=== PATIENT | female | born 1990 | race Caucasian/White ===

== ENCOUNTER 2017-12-14 21:24 | Emergency (ER) | payer OTHER, SELFPAY ==
[2017-12-14 21:32] VITALS: BP 121/71; PULSE 124; RESP 20; TEMP 39; O2SAT 100
--- NOTE | 2017-12-14 21:41 | W.ED.GENAD ---
Discharge Plan Disposition Patient Disposition: HOME Condition: Stable Discharge Details Chief Complaint: Fever Clinical Impression: Phlegmonous pharyngitis Primary Care Provider: Maggie Gutiérrez ED Provider: Franklyn Parson Home Meds and New Rx's Prescriptions: New prednisone 20 mg tablet 20 mg PO DIRECTED Qty: 18 RF: 0 amoxicillin-pot clavulanate [Augmentin] 875-125 mg tablet 1 tab PO BID Qty: 20 RF: 0 Continue norgestimate-ethinyl estradiol [Sprintec (28)] 1 EACH tablet 1 tab-cap PO DAILY Qty: 90 RF: 3 adult multivitamin 1 tab PO DAILY Qty: 0 RF: 0 ibuprofen 600 mg Tablet 600 mg PO PRN PRNRF: 0 Discontinued ciprofloxacin HCl [Cipro] 250 mg Tablet 500 mg PO BID RF: 0 Discharge Instructions Instructions: Pharyngitis (ED) Additional Instructions: You had a cat scan which showed a possible peritonsillar abscess. I had an Ears nose and throat specialist at [facility] review the images and they did not feel it was an abscess but just appeared to be a throat infection. They recommended changing your antibiotics to augmentin. You can take 1000mg tylenol and 600mg ibuprofen every 6 hours for pain as needed if you have inability to swallow liquids, difficulty breathing or severe worsening of pain return to the emergency department Discharge Data Discharge Physician: Franklyn Parson Medical Decision Making 27 yo female with no chronic medical problems comes in with fevers and sore throat. She states this started last night and saw her pcp today who origianlly palced her on clindamycin but after consulting with ENT switched her to cipro, despite this she still feels unwell so came here. She has mild erythema of the oropharynx and had negative rapdid strep testing done earlier, and has midline uvula, no changes in voice, no restricted neck movements or meningieal signs or headaches. She does have pain with palpation of the anterior neck. I suspect viral illness but given pain over the neck will obtain CT to eval for rpa vs well logging mud analysis captain vs epiglottitis pt's ct shows small right sided peritonsillar abscess and possible developing left sided abscess, she feels better, is tolerating PO liquids and has no stridor. Will discuss with ent at [facility] [place] spoke with ent at [facility] [place], Dr. Leal, and she reviewed the films and felt they were more phlegmon than abscess and didn't need drainage at this time. She felt augmentin and steroid taper and pcp f/u is all that is needed and if worsening return to the ED. The patient is speaking in full sentences and swallowing without problems so feel she is safe for d/c. She already has pcp f/u and return precautions given Differential Diagnosis mono, pharyngitis, uri, sinusitis, rpa, well logging mud analysis captain Imaging Data Radiologic Study: Attestation: I personally reviewed and interpreted this imaging study as follows: Imaging: CT Scan My impression: vrad report reviewed, small abscess peritonsillar on the right Radiologist's impression: Enlarged palatine tonsils bilaterally with heterogeneous enhancement compatible with acute tonsillitis. Right tonsillar 1.7 x 1.3 cm abscess. A smaller less defined 1.2 x 0.7 cm fluid collection within the left tonsillar bed probably representing a developing abscess. Lab Data Lab results reviewed: Yes I reviewed the patient's lab results. HPI General Mode of arrival: ambulatory. Date/Time Provider Initiated Documentation: 12/14/17 21:25. Limitations to Documentation: no limitations. Information obtained by: patient. History of Present Illness 27 year old F presents to the emergency department with the chief complaint of sore throat, described as moderate, with intensity rated at 5. Quality is described as aching, and is localized to the neck. Patient reports no radiation. Patient started experiencing this day(s) (1) and it has been constant. No relieving factors improve symptom(s), No exacerbating factors reported . Patient notes fever/chills. Patient did receive the following treatments prior to arrival, NSAID Related Data Home Medications Medication Instructions Recorded Confirmed norgestimate-ethinyl estradiol 1 tab-cap PO DAILY #90 tab-cap 11/27/14 12/14/17 [Sprintec (28)] ibuprofen 600 mg PO PRN PRN 12/14/17 12/14/17 amoxicillin-pot clavulanate 1 tab PO BID #20 tab 12/15/17 [Augmentin] prednisone 20 mg PO DIRECTED #18 tab 12/15/17 Previous Rx's Medication Instructions Recorded amoxicillin-pot clavulanate 1 tab PO BID #20 tab 12/15/17 [Augmentin] prednisone 20 mg PO DIRECTED #18 tab 12/15/17 Allergies Allergy/AdvReac Type Severity Reaction Status Date / Time No Known Allergies Allergy Unverified 12/14/17 21:35 General Stated Complaint: Fever CRISTAL: 3 Review of Systems Review of Systems All systems reviewed & are unremarkable except as noted in HPI and below Constitutional Reports fever(s) Eyes Denies loss of vision ENT Denies change in voice Cardiovascular Denies chest pain and Denies dyspnea Respiratory Denies dyspnea Gastrointestinal Denies abdominal pain, Denies nausea and Denies vomiting Genitourinary Denies dysuria Musculoskeletal Denies joint swelling Integumentary/Breasts Denies rash Neurologic Denies loss of vision Psychiatric Denies depression Endocrine Denies cold intolerance and Denies heat intolerance Allergic/Immunologic Reports urticaria PFSH Social History Smoking/Tobacco Use Status: Never Exam Const General: no acute distress Orientation: alert HENMT Head: normal to inspection Ears: external ears normal and TM's normal bilaterally General nose exam: external nose normal Face and sinus: normal facial exam Mouth: moist mucous membranes, oral mucosa abnormal and tongue abnormal Teeth and gingiva: dentition normal Eyes General: appearance normal, both eyes and all related structures Neck Neck: normal visual inspection and no meningeal signs Resp Effort & Inspection: normal respiratory effort and able to speak in complete sentences Cardio Rate: regular rate Skin General skin exam: no rashes or lesions noted Neuro General: alert and oriented x3 Extrem General: normal to inspection Psych Mental Status: mental status grossly normal Course Vital Signs Temperature 39.0 C H 12/14/17 21:32 Pulse 124 H 12/14/17 21:32 Respiratory Rate 20 12/14/17 21:32 Blood Pressure 121/71 12/14/17 21:32 Pulse Oximetry 100 12/14/17 21:32 Temperature 39.0 C H 12/14/17 21:32 Temperature Source Temporal Artery Scan 12/14/17 21:32 Pulse 124 H 12/14/17 21:32 Respiratory Rate 20 12/14/17 21:32 Respiratory Effort Non-Labored 12/14/17 21:36 Blood Pressure 121/71 12/14/17 21:32 Blood Pressure Position Sitting 12/14/17 21:32 Pulse Oximetry 100 12/14/17 21:32 Oxygen Delivery Method Room Air 12/14/17 21:32 Oxygen Flow Rate 0 12/14/17 21:32 Pain Level 7 12/14/17 21:32
--- NOTE | 2017-12-14 21:46 | ED.GENADUL_ITS ---
Discharge Plan Disposition Patient Disposition: HOME Condition: Stable Discharge Details Chief Complaint: Fever Clinical Impression: Phlegmonous pharyngitis Primary Care Provider: Maggie Gutiérrez ED Provider: Franklyn Parson Home Meds and New Rx's Prescriptions: New prednisone 20 mg tablet 20 mg PO DIRECTED Qty: 18 RF: 0 amoxicillin-pot clavulanate [Augmentin] 875-125 mg tablet 1 tab PO BID Qty: 20 RF: 0 Continue norgestimate-ethinyl estradiol [Sprintec (28)] 1 EACH tablet 1 tab-cap PO DAILY Qty: 90 RF: 3 adult multivitamin 1 tab PO DAILY Qty: 0 RF: 0 ibuprofen 600 mg Tablet 600 mg PO PRN PRNRF: 0 Discontinued ciprofloxacin HCl [Cipro] 250 mg Tablet 500 mg PO BID RF: 0 Discharge Instructions Instructions: Pharyngitis (ED) Additional Instructions: You had a cat scan which showed a possible peritonsillar abscess. I had an Ears nose and throat specialist at [facility] review the images and they did not feel it was an abscess but just appeared to be a throat infection. They recommended changing your antibiotics to augmentin. You can take 1000mg tylenol and 600mg ibuprofen every 6 hours for pain as needed if you have inability to swallow liquids, difficulty breathing or severe worsening of pain return to the emergency department Discharge Data Discharge Physician: Franklyn Parson Medical Decision Making 27 yo female with no chronic medical problems comes in with fevers and sore throat. She states this started last night and saw her pcp today who origianlly palced her on clindamycin but after consulting with ENT switched her to cipro, despite this she still feels unwell so came here. She has mild erythema of the oropharynx and had negative rapdid strep testing done earlier, and has midline uvula, no changes in voice, no restricted neck movements or meningieal signs or headaches. She does have pain with palpation of the anterior neck. I suspect viral illness but given pain over the neck will obtain CT to eval for rpa vs ferry captain vs epiglottitis pt's ct shows small right sided peritonsillar abscess and possible developing left sided abscess, she feels better, is tolerating PO liquids and has no stridor. Will discuss with ent at [facility] [place] with ent at [facility] [place], Dr. Leal, and she reviewed the films and felt they were more phlegmon than abscess and didn't need drainage at this time. She felt augmentin and steroid taper and pcp f/u is all that is needed and if worsening return to the ED. The patient is speaking in full sentences and swallowing without problems so feel she is safe for d/c. She already has pcp f/u and return precautions given Differential Diagnosis mono, pharyngitis, uri, sinusitis, rpa, ferry captain Imaging Data Radiologic Study: Attestation: I personally reviewed and interpreted this imaging study as follows: Imaging: CT Scan My impression: vrad report reviewed, small abscess peritonsillar on the right Radiologist's impression: Enlarged palatine tonsils bilaterally with heterogeneous enhancement compatible with acute tonsillitis. Right tonsillar 1.7 x 1.3 cm abscess. A smaller less defined 1.2 x 0.7 cm fluid collection within the left tonsillar bed probably representing a developing abscess. Lab Data Lab results reviewed: Yes I reviewed the patient's lab results. HPI General Mode of arrival: ambulatory . Date/Time Provider Initiated Documentation: 12/14/17 21:25 . Limitations to Documentation: no limitations . Information obtained by: patient . History of Present Illness 27 year old F presents to the emergency department with the chief complaint of sore throat, described as moderate, with intensity rated at 5. Quality is described as aching, and is localized to the neck. Patient reports no radiation. Patient started experiencing this day(s) (1) and it has been constant. No relieving factors improve symptom(s), No exacerbating factors reported . Patient notes fever/chills. Patient did receive the following treatments prior to arrival, NSAID Related Data Home Medications Medication Instructions Recorded Confirmed norgestimate-ethinyl estradiol 1 tab-cap PO DAILY #90 tab-cap 11/27/14 12/14/17 [Sprintec (28)] ibuprofen 600 mg PO PRN PRN 12/14/17 12/14/17 amoxicillin-pot clavulanate 1 tab PO BID #20 tab 12/15/17 [Augmentin] prednisone 20 mg PO DIRECTED #18 tab 12/15/17 Previous Rx's Medication Instructions Recorded amoxicillin-pot clavulanate 1 tab PO BID #20 tab 12/15/17 [Augmentin] prednisone 20 mg PO DIRECTED #18 tab 12/15/17 Allergies Allergy/AdvReac Type Severity Reaction Status Date / Time No Known Allergies Allergy Unverified 12/14/17 21:35 General Stated Complaint: Fever CRISTAL: 3 Review of Systems Review of Systems All systems reviewed & are unremarkable except as noted in HPI and below Constitutional Reports fever(s) Eyes Denies loss of vision ENT Denies change in voice Cardiovascular Denies chest pain and Denies dyspnea Respiratory Denies dyspnea Gastrointestinal Denies abdominal pain, Denies nausea and Denies vomiting Genitourinary Denies dysuria Musculoskeletal Denies joint swelling Integumentary/Breasts Denies rash Neurologic Denies loss of vision Psychiatric Denies depression Endocrine Denies cold intolerance and Denies heat intolerance Allergic/Immunologic Reports urticaria PFSH Social History Smoking/Tobacco Use Status: Never Exam Const General: no acute distress Orientation: alert HENMT Head: normal to inspection Ears: external ears normal and TM's normal bilaterally General nose exam: external nose normal Face and sinus: normal facial exam Mouth: moist mucous membranes, oral mucosa abnormal and tongue abnormal Teeth and gingiva: dentition normal Eyes General: appearance normal, both eyes and all related structures Neck Neck: normal visual inspection and no meningeal signs Resp Effort & Inspection: normal respiratory effort and able to speak in complete sentences Cardio Rate: regular rate Skin General skin exam: no rashes or lesions noted Neuro General: alert and oriented x3 Extrem General: normal to inspection Psych Mental Status: mental status grossly normal Course Vital Signs Temperature 39.0 C H 12/14/17 21:32 Pulse 124 H 12/14/17 21:32 Respiratory Rate 20 12/14/17 21:32 Blood Pressure 121/71 12/14/17 21:32 Pulse Oximetry 100 12/14/17 21:32 Temperature 39.0 C H 12/14/17 21:32 Temperature Source Temporal Artery Scan 12/14/17 21:32 Pulse 124 H 12/14/17 21:32 Respiratory Rate 20 12/14/17 21:32 Respiratory Effort Non-Labored 12/14/17 21:36 Blood Pressure 121/71 12/14/17 21:32 Blood Pressure Position Sitting 12/14/17 21:32 Pulse Oximetry 100 12/14/17 21:32 Oxygen Delivery Method Room Air 12/14/17 21:32 Oxygen Flow Rate 0 12/14/17 21:32 Pain Level 7 12/14/17 21:32
[2017-12-14] MEDS: Normal Saline 1,000 ML 1000 ML IV (22:10)
[2017-12-14] MEDS: Acetaminophen 500 MG TAB 1000 MG PO (22:10)
[2017-12-14 22:19] LABS: Abs Immature Grans 0.03 k/cumm (0.0-0.09); Absolute Basophil Count 0.01 k/cumm (0.0-0.2); Absolute Lymphocyte Count 0.92 k/cumm (1.2-3.4); Absolute Monocyte Count 1.06 k/cumm (0.11-0.7); Absolute Neutrophil Count 11.94 k/cumm (1.2-6.7); Basophils % 0.1; HCT 42.2 % (36.0-46.0); Immature Grans % 0.2; Lymphocytes % 6.6; Mean Corp. HGB Concentration 33.2 g/dL (32.0-36.0); Mean Corpuscular Hemoglobin 30.2 pg (27.0-33.0); Mean Corpuscular Volume 90.9 fL (80-95); Mean Platelet Volume 12.1 fL (8.0-11.0); Monocytes % 7.6; Neutrophils % 85.5; Platelet Count 209 x1000/uL (130-400); RBC 4.64 m/cumm (4.00-5.20); RBC Distribution Width 12.8 % (11.7-14.6); White Blood Cell Count 13.96 k/cumm (4.4-10.8)
[2017-12-14 22:26] LABS: ALT 18 U/L (12-78); AST 17 U/L (15-37); Albumin 3.4 g/dL (3.4-5.0); Alkaline Phosphatase 82 U/L (46-116); Anion Gap 12.6 mmol/L (3-11); BUN 7 mg/dL (7-18); Bilirubin, Total 0.6 mg/dL (0.2-1.0); CO2 25.4 mmol/L (21.0-32.0); CREATININE 0.84 mg/dL (0.55-1.02); Calcium 8.6 mg/dL (8.5-10.1); Chloride 98 mmol/L (98-107); Glucose 121 mg/dL (70-100); Mono Screening Negative (Negative); Sodium 136 mmol/L (136-145); Total Protein 8.1 g/dL (6.4-8.2)
[2017-12-14] MEDS: Omnipaque 350 MG/ML 100 ML BTL IJ (22:55)
--- NOTE | 2017-12-14 23:05 | DI.CT_ITS ---
SYMPTOMS/DIAGNOSIS: SORE THROAT AND FEVERS CT SCAN OF THE NECK: CT scan of the neck was performed following the uneventful administration of intravenous contrast material. The palatine tonsils are enlarged bilaterally. There are rim-enhancing fluid collections in the palatine tonsils bilaterally, the largest is on the right and measures 1.8 cm transverse x 1.4 cm AP x 2 cm craniocaudad. On the left, there is a similar fluid collection seen measuring 1.3 cm transverse x 1.1 cm AP x 1.2 cm craniocaudad. There is mild impingement on the airway, but no significant narrowing noted. These fluid collections probably reflect abscesses. The remaining portions of the nasopharynx, hypopharynx, oropharynx and larynx are unremarkable. The thyroid gland is unremarkable. The submandibular and parotid glands are unremarkable. There are mildly enlarged lymph nodes in the neck. These are likely reactive. There is a small mucus retention cyst or polyp in the left maxillary sinus. The remaining visualized paranasal sinuses are clear. The mastoid air cells are well pneumatized. The bones are intact. The vascular structures are unremarkable. IMPRESSION: Bilateral enlarged palatine tonsils consistent with acute tonsillitis. Fluid collections seen bilaterally within the tonsils, most consistent with abscesses.
--- NOTE | 2017-12-14 23:29 | DI.VRAD_ITS ---
EXAM: CT Neck With Intravenous Contrast EXAM DATE/TIME: 12/14/2017 9:41 PM CLINICAL HISTORY: 27 years old, female; Pain; Throat pain; Patient HX: Sore throat and fever TECHNIQUE: Axial computed tomography images of the neck with intravenous contrast. All CT scans at this facility use at least one of these dose optimization techniques: automated exposure control; mA and/or kV adjustment per patient size (includes targeted exams where dose is matched to clinical indication); or iterative reconstruction. Coronal and sagittal reformatted images were created and reviewed. CONTRAST: 100 ml of Omnipaque 350 administered intravenously. COMPARISON: No relevant prior studies available. FINDINGS: Nasopharynx: Normal. Oropharynx: Enlarged palatine tonsils bilaterally with heterogeneous enhancement compatible with acute tonsillitis. There is a right tonsillar 1.7 x 1.3 cm fluid collection with associated rim enhancement compatible with abscess. A smaller less defined 1.2 x 0.7 cm fluid collection within the left tonsillar bed probably representing a developing abscess. Hypopharynx: Normal. Larynx: Normal. Normal epiglottis. Trachea: Normal. Retropharyngeal space: Normal. Submandibular/Parotid glands: Normal. Glands are normal in size. Thyroid: Normal. No enlarged or calcified nodules. Bones/joints: Normal. No acute fracture. Soft tissues: Normal. No significant soft tissue swelling. Vasculature: No acute findings. Lymph nodes: Enlarged level II lymph nodes bilaterally, likely reactive. Lung apices: Normal as visualized. IMPRESSION: Enlarged palatine tonsils bilaterally with heterogeneous enhancement compatible with acute tonsillitis. Right tonsillar 1.7 x 1.3 cm abscess. A smaller less defined 1.2 x 0.7 cm fluid collection within the left tonsillar bed probably representing a developing abscess. Dictated and Authenticated by: Paul Ortiz MD. Ordering:DAMARIS YU MD
[2017-12-14] MEDS: AMPICILLIN/SULBACTAM 3 GM in Normal Saline 100 ML IVPB (23:41)
[2017-12-14] MEDS: Dexamethasone 10 MG/ML VIAL IVP (23:42)
[2017-12-14 23:49] VITALS: PULSE 106; RESP 18; TEMP 37.4; O2SAT 100
== END 2017-12-15 01:19 | disposition home or self-care (01) ==
PROVIDERS: Emergency Provider Emergency Medicine; PCP Nurse Practitioner
DX: J02.8 Acute pharyngitis due to other specified organisms (principal)
CPT/HCPCS: 36415; 70491; 80053; 96361; 96365; 96375; 99285; 85025; 86308; J0295; J1100; J3490

== ENCOUNTER 2018-02-15 15:04 | Outpatient (REF) | payer OTHER, SELFPAY ==
--- NOTE | 2018-02-15 14:30 | PAPFT_PTH ---
PATIENT: Tara Guerrier LOC: [facility] U#:[id number] AGE/SX: 27/F ROOM: RE02/15/[address]: RON Weeks : 1990 BED: DIS: 02/15/2018 SPEC #: [id number] RECD: 02/15/18 17:50 STATUS: MATTEO REQ #: [id number] KYLAH: 02/15/18 14:[address]: Tracy Fam DEPT: [facility] Cytology RECD BY: Carolyne Shelton ENTERED: 02/15/18 17:51 SP TYPE: PAPFT OTHR DR: Maggie Gutiérrez Tissues: 1 - CX/ENDOCX FOR PAP SMEARS Procedures: PAP THIN PREP/[facility] Screening Comments: [id number]
[2018-02-19 14:24] LABS: Chlamydia Result Negative; GC Result Negative; Specimen Description CERVIX
== END 2018-02-15 15:24 ==
LOC: LBN 15:04
PROVIDERS: PCP Nurse Practitioner; Visit Provider Nurse Practitioner Family
DX: Z12.4 Encounter for screening for malignant neoplasm of cervix (principal); Z11.3 Encounter for screening for infections with a predominantly sexual mode of transmission
CPT/HCPCS: 87491; 87591; 88142

== ENCOUNTER 2019-11-30 09:56 | Emergency (ER) | payer OTHER, SELFPAY ==
[2019-11-30] VITALS (19 sets, daily range): BP systolic 122–153; BP diastolic 67–110; PULSE 64–94; RESP 9–22; TEMP 36.5; O2SAT 96–100
--- NOTE | 2019-11-30 09:58 | W.ED.GENAD ---
Discharge Plan Disposition Patient Disposition: [facility] Condition: Serious Discharge Details Clinical Impression: Dissection, vertebral artery Primary Care Provider: Maggie Gutiérrez ED Provider: Flavia Obando Home Meds and New Rx's Prescriptions: No Action norgestimate-ethinyl estradiol [Sprintec (28)] 1 EACH tablet 1 tab-cap PO DAILY Qty: 90 RF: 3 ibuprofen 600 mg Tablet 600 mg PO PRN PRNRF: 0 Discharge Data Discharge Date/Time-TO BE ENTERED AT DEPARTURE: 11/30/19 11:57 Medical Decision Making <WALLACE Lundberg - Last Filed: 11/30/19 12:54> Patient is a pleasant 29-year-old female presenting today with chief complaint of right-sided weakness. She reports that she was outside speaking words when she suddenly had right-sided weakness causing her to fall to the right. She did not strike her head. States that she felt presyncopal but did not suffer an actual syncopal event. Has felt vertiginous, feels that her right arm and leg are heavy. Denies any sensory deficits. Did not suffer any incontinence. States that she is having some end pain in the posterior right side of her neck. No recent trauma. No recent travel. No personal or familial history of clotting disorders or DVT. Patient reports that she is starting her menses now. No previous history of CVA, brain CA, recent surgery recent trauma. On exam, patient appears very anxious and is tearing. She is unable to stand without large amount of assistance secondary to right-sided weakness. However, she does not demonstrate any pronator drift, strength equal in the upper and lower extremities bilaterally. She has no saddle paresthesias, sensory deficits. Normal Babinski. Pcqndi-[id number] on the right does just laterally missed the nose but is able to touch my finger easily, normal on the left. No cranial nerve deficits. Cannot palpate or note any trauma to the neck. No pain elicited with palpation. My primary concern at this time is for a right-sided vertebral artery dissection. Will immediately send the patient for CTA of head and neck. Reexamined patient, she has no sensory deficit, no new focal weakness. Tried to sit her up, she continues to list to the right when I have her try to sit up. Contacted by AD regarding imaging. Dissection right vertebral artery. Focal narrowing at C4-C5. Recommended MRI/MRA. Will consult with neurosurgery at [facility] – [place]. Consulted with Dr. Bender. She did not recommend anticoagulation or thrombolysis at this time. Recommended ASA. Full dose ASA given. Patient remains hemodynamically stable will be transferred via ground to [facility] [place]. <Franklyn Parson MD - Last Filed: 11/30/19 11:10> I had a [id number] encounter with the patient. I evaluated the patient. I discussed case with VENEER DEPARTMENT MANAGER/PA and I reviewed VENEER DEPARTMENT MANAGER/PA note and agree with note as documented. HPI <WALLACE Lundberg - Last Filed: 11/30/19 12:54> General Mode of arrival: wheelchair. Date/Time Provider Initiated Documentation: 11/30/19 09:57. Limitations to Documentation: no limitations. Information obtained by: patient and RN notes reviewed. HPI Narrative: Patient is a pleasant 29-year-old female presenting today with chief complaint of right-sided neck pain, vertigo, right-sided weakness. She reports that prior to arrival she was picking gourd in her own dee. She states that she has been feeling quite well this morning. States that she stood up and suddenly became weak and felt that the room was spinning. She states that she was unable to maintain upright posture secondary to his right-sided weakness. Was immediately transported here by family. States that she is starting her menses now. She denies any recent travel. She denies any chest pain or shortness of breath. She denies any nausea vomiting. No incontinence. Denies any sensory changes. States that the in the garden is treated with insecticides it has not been treated in several weeks. Related Data Home Medications Medication Instructions Recorded Confirmed norgestimate-ethinyl estradiol 1 tab-cap PO DAILY #90 tab-cap 11/27/14 11/30/19 [Sprintec (28)] ibuprofen 600 mg PO PRN PRN 12/14/17 11/30/19 Allergies Allergy/AdvReac Type Severity Reaction Status Date / Time No Known Allergies Allergy Verified 11/30/19 10:24 General CRISTAL: 3 Review of Systems <WALLACE Lundberg - Last Filed: 11/30/19 12:54> Constitutional Constitutional: Reports as per HPI, Denies chills, Denies fatigue, Denies fever(s), Denies frequent falls, Denies headache(s), Denies snoring and Reports weakness Eyes Eyes: Reports as per HPI, Denies blurry vision, Denies change in vision and Reports photophobia ENT Ears, Nose, Mouth, and Throat: Reports vertigo, Denies headache(s) and Reports neck pain Cardiovascular Cardiovascular: Reports as per HPI, Denies chest pain, Denies lightheadedness, Denies radiating jaw, neck or arm pain, Denies dyspnea and Denies dyspnea on exertion Respiratory Respiratory: Reports as per HPI, Denies chest congestion, Denies cough, Denies dyspnea, Denies dyspnea on exertion, Denies snoring, Denies stridor and Denies wheezing Gastrointestinal Gastrointestinal: Reports as per HPI, Denies abdominal pain, Denies change in bowel habits, Denies nausea and Denies vomiting Musculoskeletal Musculoskeletal: Reports as per HPI, Denies back pain, Denies myalgias, Denies muscle cramps, Reports neck pain and Denies numbness Integumentary/Breasts Skin/Breast: Reports as per HPI and Denies rash Neurologic Neurologic: Reports as per HPI, Reports abnormal movements, Denies abnormal speech, Denies behavioral changes, Denies confusion, Reports vertigo, Denies frequent falls, Denies headache(s), Reports localized weakness, Denies numbness, Denies sensory deficit and Reports weakness Psychiatric Psychiatric: Denies behavioral changes and Denies confusion Endocrine Endocrine: Denies fatigue Allergic/Immunologic Allergic/Immunologic: Denies wheezing PFSH <WALLACE Lundberg - Last Filed: 11/30/19 12:54> Medical History Contraception Social History Smoking/Tobacco Use Status: Never Alcohol Intake: current Alcohol Intake frequency: a few times a week Drug use: Never current occupation: [employer] Do you feel safe in your relationship?: Yes Female Reproductive History Menstrual control method: pills History History 1 Para 1 Hx # Term Pregnancies Multiple births Hx # Pregnancies Ectopic pregnancies AB induced Hx Number of Living Children AB spontaneous Exam <WALLACE Lundberg - Last Filed: 11/30/19 12:54> Const General: cooperative, healthy appearing, uncomfortable, well developed, well groomed and in distress (unable to stand, very anxious) Nutritional Appearance: average body habitus and well nourished Orientation: alert, awake and oriented x3 [facility] Head: normal to inspection, no palpable skull fracture, normocephalic and atraumatic Ears: hearing grossly normal bilaterally, external ears normal and TM's normal bilaterally General nose exam: external nose normal Mouth: oral mucosae normal and moist mucous membranes Throat: posterior oropharynx normal Eyes General: appearance normal, both eyes and all related structures Alignment and Position: alignment normal Periorbital: periorbital findings normal Eyelids: eyelids normal Sclera: sclerae normal Cornea: corneas normal Pupils: PERRL EOM: EOM intact bilaterally Neck Neck: normal visual inspection, full ROM, no lymphadenopathy and no meningeal signs Resp Effort & Inspection: normal respiratory effort, able to speak in complete sentences and no respiratory distress Auscultation: clear to auscultation bilaterally, no rales, no rhonchi and no wheezes Cardio Rate: regular rate Rhythm: regular rhythm Heart Sounds: S1 normal and S2 normal GI Inspection: normal to inspection and non-distended Palpation: soft, no hepatosplenomegaly, not firm, no guarding, not rigid and nontender Percussion: normal to percussion Auscultation: normal bowel sounds Back/Spine/Pelvis Cervical Spine: normal cervical lordosis, cervical ROM normal, No cervical spasm, No cervical spinal tenderness and No step off deformity Thoracic/Lumbar Spine: thoracic and lumbar spine normal to inspection Skin General skin exam: no rashes or lesions noted Neuro General: patient alert, patient awake and patient oriented x3 Cranial Nerves: CN's II-XI intact bilaterally Cognition: normal cognition Speech: speech normal Gait: gait abnormal (unable to stand, lists to the right) Motor: muscle tone normal throughout, strength 5/5 throughout, no pronator drift, abnormal movements noted (even when sitting, falls toward the right) and no fasciculations Sensory Exam: no sensory deficits noted Coordination: ljtalp-sk-jfuy test abnormal (misses nose on the right side), xfsa-ws-[id number] test normal, Romberg test abnormal (unable to preform) and tandem gait abnormal (unable to perform) Extrem General: normal to inspection, capillary refill normal, no pedal edema and no calf tenderness Psych Appearance: grossly normal and well kempt Mental Status: mental status grossly normal Speech and Movement: speech and movement normal
--- NOTE | 2019-11-30 10:00 | RT.EKG_ITS ---
APPROVED REPORT Exam: Resting ECG Patient Location: E HR:64 bpm ECG Measurements Heart Rate 64 AXIS OR 141 P 47 QRSd 78 QRS 72 QT 418 T 63 QTc 432 Conclusion Sinus rhythm...normal P axis, V-rate 60- 99
--- NOTE | 2019-11-30 10:00 | DI.RAD_ITS ---
EXAM: XR CHEST 2V PA LATERAL CLINICAL HISTORY: weakness TECHNIQUE: 2D digital imaging was performed. COMPARISON: No exams were available for comparison FINDINGS: MEDIASTINUM: Normal. HEART: Normal. PULMONARY VASCULATURE: Normal. LUNGS: Clear. PLEURAL SPACE: No pleural effusion or pneumothorax. BONE:Within normal limits for the patient's age. OTHER FINDINGS:Normal. IMPRESSION: No acute pulmonary findings. DATA REPOSITORY: RADIATION DOSE DELIVERED:
[2019-11-30] MEDS: Omnipaque 350 MG/ML 100 ML BTL IJ (10:17)
[2019-11-30 10:21] LABS: Abs Immature Grans 0.02 10^3/uL (0.0-0.06); Absolute Basophil Count 0.03 10^3/uL (0.0-0.2); Absolute Eosinophil Count 0.12 10^3/uL (0.0-0.7); Absolute Lymphocyte Count 2.27 10^3/uL (1.2-3.4); Absolute Monocyte Count 0.53 10^3/uL (0.1-0.8); Absolute Neutrophil Count 4.98 10^3/uL (1.2-6.7); Basophils % 0.4; Eosinophils % 1.5; HGB 13.9 g/dL (11.2-15.7); Immature Grans % 0.3; Lymphocytes % 28.6; MCH 30.1 pg (27.0-33.0); MCHC 32.3 % (32.0-36.0); MCV 93.1 fL (80-95); MPV 11.9 fL (8.0-11.0); Monocytes % 6.7; Neutrophils % 62.5; Nucleated RBC 0 %; Platelet Count 275 10^3/uL (130-400); RBC 4.62 10^6/uL (3.93-5.22); RDW 12.3 % (11.7-14.6); WBC 7.95 10^3/uL (4.4-10.8)
[2019-11-30] MEDS: Normal Saline - Diluent 50 ML VIAL IV (10:21)
[2019-11-30] MEDS: Normal Saline Flush 10 ML SYR IVP (10:21)
--- NOTE | 2019-11-30 10:25 | DI.CT_ITS ---
EXAM: CT BRAIN NECK CTA CLINICAL HISTORY: right sided weakness, vertigo. TECHNIQUE: Imaging Protocol: Axial CT angiography was performed with multi-slice acquisition and mu lti-planar and/or 3D reconstructions. CONTRAST MATERIAL: Intravenous: Omnipaque 350 Contrast volume:structured data in ml COMPARISON: No exams were available for comparison FINDINGS: CT Head W/O: Ventricles and Extra axial spaces: Normal in size and morphology for the patient's age. Hemorrhage: None. Cerebral parenchyma: Normal. Midline shift: None. Brainstem/Cerebellum: Normal. Calvarium: Normal. Visualized Paranasal sinuses/Mastoids: Mucous retention cysts or polyps are seen in the left maxillar y sinus. The remaining visualized paranasal sinuses are clear. Soft Tissues: Unremarkable. CTA Brain W: Internal Carotid Arteries: Petrous: Normal. Cavernous: Normal. Cerebral: Normal. Anterior Cerebral Arteries: Right: No aneurysm, occlusion or significant stenosis. Left: No aneurysm, occlusion or significant stenosis. Middle Cerebral Arteries: Right: No aneurysm, occlusion or significant stenosis. Left: No aneurysm, occlusion or significant stenosis. Posterior cerebral Arteries: Right: No aneurysm, occlusion or significant stenosis. The right posterior communicating artery is p resent. Left: No aneurysm, occlusion or significant stenosis. Vertebral Arteries: Right: No aneurysm, occlusion or significant stenosis. Left: No aneurysm, occlusion or significant stenosis. Basilar Artery: No aneurysm, occlusion or significant stenosis. CTA Neck W: Common Carotid: Right: No aneurysm, occlusion or significant stenosis. Left: No aneurysm, occlusion or significant stenosis. External Carotid: Right: No aneurysm, occlusion or significant stenosis. Left: No aneurysm, occlusion or significant stenosis. Internal Carotid: Right: No aneurysm, occlusion or significant stenosis. Left: No aneurysm, occlusion or significant stenosis. Vertebral Artery: Right: No aneurysm. There is focal narrowing of the right vertebral artery at the C4-5 level. No o cclusion. Left: No aneurysm, occlusion or significant stenosis. Lung Apices: Normal. Bones: Normal. Soft Tissues: Normal. IMPRESSION: 1. Normal CTA examination of the [place] of [place]. 2. Unremarkable noncontrast CT Head. 3. Focal marked narrowing of the right vertebral artery at the C4-5 level. This is concerning for di ssection. MRA of the neck should be considered for further evaluation. RADIATION DOSE DELIVERED: 1,015.02mGy.cm Total DLP DATA REPOSITORY: All CT scans at this facility are submitted to the National Radiology Data Registry (NRDR) Dose Index Registry (DIR) with the [employer] (A[employer]). RADIATION OPTIMIZATION: All CT scans at this facility use at least one of these dose optimization te chniques: automated exposure control; mA and/or kV adjustment per patient size (includes targeted exa ms where dose is matched to clinical indication); or iterative reconstruction.
[2019-11-30 10:33] LABS: PTT Activated 24.6 sec (21.0-31.4); Prothrombin Time 9.8 sec (9.3-11.0)
[2019-11-30 10:36] LABS: ALT 37 U/L (14-59); AST 27 U/L (15-37); Albumin 3.7 g/dL (3.4-5.0); Alkaline Phosphatase 61 U/L (46-116); Anion Gap 8.8 mmol/L (3-11); BUN 18 mg/dL (7-18); Bilirubin, Total 0.3 mg/dL (0.2-1.0); CO2 27.2 mmol/L (21.0-32.0); CREATININE 0.88 mg/dL (0.55-1.02); Chloride 104 mmol/L (98-107); Glucose 101 mg/dL (74-106); Potassium 3.5 mmol/L (3.5-5.1); Sodium 140 mmol/L (136-145); Total Protein 7.7 g/dL (6.4-8.2)
[2019-11-30 10:48] LABS: Troponin I < 0.05 ng/mL (<0.06)
--- NOTE | 2019-11-30 11:09 | DI.VRAD_ITS ---
PROCEDURE INFORMATION: Exam: CT Angiography Head With Contrast Exam date and time: 11/30/2019 10:22 AM Age: 29 years old Clinical indication: Other: Right sided weakness, vertigo; Additional info: Concern for vertebral artery dissection TECHNIQUE: Imaging protocol: Computed tomography angiography of the head with intravenous contrast. 3D rendering (Not supervised by radiologist): MIP and/or 3D reconstructed images were created by the technologist. Radiation optimization: All CT scans at this facility use at least one of these dose optimization techniques: automated exposure control; mA and/or kV adjustment per patient size (includes targeted exams where dose is matched to clinical indication); or iterative reconstruction. Contrast material: OMNIPAQUE 350; Contrast volume: 85 ml; Contrast route: INTRAVENOUS (IV); COMPARISON: No relevant prior studies available. FINDINGS: ANTERIOR CIRCULATION: Right internal carotid artery: Unremarkable. Intracranial segment is patent with no significant stenosis. No aneurysm. Right middle cerebral artery: Unremarkable. No occlusion or significant stenosis. No aneurysm. Right anterior cerebral artery: Unremarkable. No occlusion or significant stenosis. No aneurysm. Left internal carotid artery: Unremarkable. Intracranial segment is patent with no significant stenosis. No aneurysm. Left middle cerebral artery: Unremarkable. No occlusion or significant stenosis. No aneurysm. Left anterior cerebral artery: Unremarkable. No occlusion or significant stenosis. No aneurysm. POSTERIOR CIRCULATION: Right vertebral artery: Unremarkable. No occlusion or significant stenosis. No aneurysm. Left vertebral artery: Unremarkable. No occlusion or significant stenosis. No aneurysm. Basilar artery: Unremarkable. No occlusion or significant stenosis. No aneurysm. Right posterior cerebral artery: Dominant right posterior communicating artery with a diminutive or absent left posterior communicating artery. No occlusion or significant stenosis. No aneurysm. Left posterior cerebral artery: Unremarkable. No occlusion or significant stenosis. No aneurysm. Brain: No definite mass, mass effect, or midline shift. Cerebral ventricles: Normal. No ventriculomegaly. Bones/joints: Unremarkable. No acute fracture. Soft tissues: Unremarkable. IMPRESSION: No large vessel stenosis or occlusion of the head. PROCEDURE INFORMATION: Exam: CT Angiography Neck With Contrast Exam date and time: 11/30/2019 10:22 AM Age: 29 years old Clinical indication: Other: Right sided weakness, vertigo; Additional info: Concern for vertebral artery dissection TECHNIQUE: Imaging protocol: Computed tomography angiography of the neck with intravenous contrast. 3D rendering (Not supervised by radiologist): MIP and/or 3D reconstructed images were created by the technologist. Radiation optimization: All CT scans at this facility use at least one of these dose optimization techniques: automated exposure control; mA and/or kV adjustment per patient size (includes targeted exams where dose is matched to clinical indication); or iterative reconstruction. Contrast material: OMNIPAQUE 350; Contrast volume: 85 ml; Contrast route: INTRAVENOUS (IV); COMPARISON: No relevant prior studies available. FINDINGS: Right common carotid artery: No stenosis. No dissection or occlusion. Right internal carotid artery: No stenosis of the extracranial segment. No dissection or occlusion. Right external carotid artery: No occlusion or stenosis of the origin. Right vertebral artery: There is focal narrowing of the right vertebral artery at the C4-C5 level concerning for dissection. No occlusion. Left common carotid artery: No stenosis. No dissection or occlusion. Left internal carotid artery: No stenosis of the extracranial segment. No dissection or occlusion. Left external carotid artery: No occlusion or stenosis of the origin. Left vertebral artery: No stenosis. No dissection or occlusion. Bones/joints: No acute fracture. Soft tissues: Normal. No significant soft tissue swelling. IMPRESSION: 1. There is severe focal narrowing of the right vertebral artery at the C4-C5 level concerning for dissection. Contrast artifact somewhat obscures evaluation at this level. Recommend MRI/MRA of the neck with T1 fat saturated images for further characterization. THIS REPORT CONTAINS FINDINGS THAT MAY BE CRITICAL TO PATIENT CARE. The findings were verbally communicated via telephone conference with MUNDO MCMILLAN at 11:05 AM EDT on 11/30/2019. The findings were acknowledged and understood. REFERENCES: NASCET CRITERIA. The degree of internal carotid artery stenosis is based on NASCET criteria. Normal is no stenosis. Mild is less than 50% stenosis. Moderate is 50-69% stenosis. Severe is 70% to 99% stenosis. Total occlusion is no detectable patent lumen. Dictated and Authenticated by: Kit Shin MD. Ordering:YUMIKO Alejandro MD
--- NOTE | 2019-11-30 11:09 | DI.VRAD_ITS ---
PROCEDURE INFORMATION: Exam: XR Chest, 2 Views Exam date and time: 11/30/2019 10:33 AM Age: 29 years old Clinical indication: Pain; Other: Weakness; Additional info: Concern for vertebral artery dissection TECHNIQUE: Imaging protocol: XR of the chest Views: 2 views. COMPARISON: No relevant prior studies available. FINDINGS: Lungs: Unremarkable. No consolidation. Pleural space: Unremarkable. No pleural effusion. No pneumothorax. Heart/Mediastinum: Unremarkable. No cardiomegaly. Bones/joints: Unremarkable. IMPRESSION: No acute findings. Dictated and Authenticated by: Kit Shin MD. Ordering:YUMIKO Alejandro MD
[2019-11-30 11:16] LABS: HCG Qual (Serum) Negative
[2019-11-30] MEDS: Aspirin 81 MG CHEW 324 MG CH (11:25)
== END 2019-11-30 11:57 | disposition short-term general hospital (02) ==
PROVIDERS: Emergency Medicine; Emergency Provider Physician Assistant; PCP Nurse Practitioner
DX: I77.74 Dissection of vertebral artery (principal); G81.91 Hemiplegia, unspecified affecting right dominant side; R42 Dizziness and giddiness; M54.2 Cervicalgia
CPT/HCPCS: 36415; 36416; 70496; 70498; 80053; 82962; 93005; 99285; 71046; 83735; 84484; 84703; 85025; 85610; 85730; 93010; J3490

== ENCOUNTER 2019-12-08 13:11 | Emergency (ER) | payer OTHER, SELFPAY ==
[2019-12-08 13:16] VITALS: BP 146/89; PULSE 86; RESP 99; TEMP 36.7; O2SAT 100
--- NOTE | 2019-12-08 13:30 | RT.EKG_ITS ---
APPROVED REPORT Exam: Resting ECG Patient Location: E HR:76 bpm ECG Measurements Heart Rate 76 AXIS WA 151 P 68 QRSd 77 QRS 79 QT 394 T 62 QTc 443 Conclusion Sinus rhythm...normal P axis, V-rate 60- 99
--- NOTE | 2019-12-08 13:45 | ED.GENADUL_ITS ---
Discharge Plan Disposition Patient Disposition: HOME Condition: Improving Discharge Details Clinical Impression: Neck muscle spasm Primary Care Provider: Maggie Gutiérrez ED Provider: Sami Love Home Meds and New Rx's Prescriptions: Continued norgestimate-ethinyl estradiol [Sprintec (28)] 1 EACH tablet 1 tab-cap PO DAILY Qty: 90 RF: 3 ibuprofen 600 mg Tablet 600 mg PO PRN PRNRF: 0 aspirin 325 mg Tablet 325 mg PO DAILY RF: 0 acetaminophen 500 mg Tablet 1,000 mg PO PRN PRNRF: 0 Discharge Instructions Additional Instructions: Follow-up with neurology at [facility] on December 10 as planned. Continue your regular medications including daily 325 mg aspirin. May apply gentle massage and moist heat to area on left neck for comfort. May continue Tylenol if needed for pain. Return if develop any new symptoms, recurrent right sided weakness, or any other acute concerns. 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 It was associated with right-sided weakness. She was seen at this hospital and then transferred to [facility] from which she was discharged approximately 1 week ago. She is been taking daily 325 mg aspirin. She increase her activity levels yesterday. This morning she noted left-sided neck pain. She went shopping and felt drunk. She did not fall. She did not have gait instability. No weakness. No numbness. She arrives with blood pressure 148/89, she is afebrile and well-appearing. Her cranial nerves, gait, Romberg are all unremarkable. She does have muscular sp asm and tenderness present in the left neck. Differential diagnosis includes tension type headache with muscular spasm, must exclude recurrent intracranial injury or dissection. Patient IV access established, given fluid bolus, acetaminophen, referred for laboratory testing and CT images. Labs are notable for prerenal dehydration with BUN elevation up to 19. Patient improving with fluids and acetaminophen. Her laboratories are reassuring. CTA of the brain and neck shows some attenuation of flow in the right vertebral artery versus previous comparison. No significant stenosis of either common, internal, or external carotid artery. Given patient's recent admission to [facility], now resolved right-sided weakness, images were uploaded to [facility] and case discussed with on-call neurology at [facility], Dr. Black. Given the patient's resolution of previous right-sided symptoms, no active deficits, will continue treatment with aspirin daily. She [place] [facility] Her left-sided discomfort has been improving as above. She is stable and appropriate for discharge to home. Lab Data Lab results reviewed: Yes I reviewed the patient's lab results. Labs: Laboratory Results - last 24 hr 12/08/19 12/08/19 13:25 13:25 WBC 7.96 RBC 4.33 Hgb 13.3 Hct 40.1 MCV 92.6 MCH 30.7 MCHC 33.2 RDW 12.1 Plt Count 300 MPV 12.0 H Immature Gran % 0.4 Neutrophils % 57.4 Lymphocytes % 34.2 Monocytes % 6.5 Eosinophils % 1.0 Basophils % 0.5 Nucleated RBC % 0 Absolute Neutrophils 4.57 Absolute Lymphocytes 2.72 Absolute Monocytes 0.52 Absolute Eosinophils 0.08 Absolute Basophils 0.04 Sodium 138 Potassium 3.4 L Chloride 102 Carbon Dioxide 28.0 Anion Gap 8.0 BUN 19 H Creatinine 0.98 Estimated GFR/1.73 m2 >= 60.00 Glucose 141 H Calcium 9.0 HPI General Mode of arrival: ambulatory . Date/Time Provider Initiated Documentation: 12/08/19 13:19 . Limitations to Documentation: no limitations . Information obtained by: patient . History of Present Illness 29 year old F presents to the emergency department with the chief complaint of Left neck pain, recent right vertebral artery dissection, described as moderate, Quality is described as dull and constant, and is localized to the neck and left. Patient reports no radiation. Patient started experiencing this hour(s) and it has been constant. No relieving factors improve symptom(s), Patient notes headaches; denies fever/chills, loss of appetite, malaise, syncope and weakness. Patient did receive the following treatments prior to arrival, none Related Data Home Medications Medication Instructions Recorded Confirmed norgestimate-ethinyl estradiol 1 tab-cap PO DAILY #90 tab-cap 11/27/14 12/08/19 [Sprintec (28)] ibuprofen 600 mg PO PRN PRN 12/14/17 11/30/19 acetaminophen 1,000 mg PO PRN PRN 12/08/19 12/08/19 aspirin 325 mg PO DAILY 12/08/19 12/08/19 Allergies Allergy/AdvReac Type Severity Reaction Status Date / Time No Known Allergies Allergy Verified 12/08/19 13:42 General Stated Complaint: CVA/TIA CRISTAL: 2 Review of Systems Narrative: Mild left-sided headache. No vomiting. No fever. No falls. No unsteadiness of gait. Earlier felt drunk. Now improved. Taking aspirin. 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 Pleasant, well groomed, interactive. HEAD: Normocephalic, atraumatic ENT: Mucous membranes moist, oropharynx unremarkable, External ear exam unremarkable EYES: PERRL, EOMI NECK: Full ROM, no SCHUYLER, no menigismus. Left posterior neck tenderness and muscular spasm present. No bruits appreciated. CHEST/RESP: Nontender, clear to auscultation bilateral, no wheeze/rhonchi/rales CARDIOVASCULAR: RRR, no murmur, rub som. 2+ Rad pulse bilateral ABDOMEN: Soft, nontender, no mass. +Bowel sounds EXT: Full ROM, no edema, no rash Neuro: Grossly normal neurologic exam, conversant, interactive. Cranial nerves II through XII intact. [id number] intact. Gait narrow based with good heel strike. Romberg negative. Rapid independent finger movements symmetric upper extremities. Psych: Speech fluent, thoughts congruent, affect normal Course Vital Signs Vital signs: Vital Signs Temperature 36.7 C 12/08/19 13:16 Pulse 86 12/08/19 13:16 Respiratory Rate 99 H 12/08/19 13:16 Blood Pressure 146/89 H 12/08/19 13:16 Pulse Oximetry 100 12/08/19 13:16 Temperature 36.7 C 12/08/19 13:16 Temperature Source Skin 12/08/19 13:16 Pulse 86 12/08/19 13:16 Respiratory Rate 99 H 12/08/19 13:16 Respiratory Effort Non-Labored 12/08/19 13:29 Blood Pressure 146/89 H 12/08/19 13:16 Blood Pressure Position Sitting 12/08/19 13:16 Pulse Oximetry 100 12/08/19 13:16 Oxygen Delivery Method Room Air 12/08/19 13:16 Oxygen Flow Rate 0 12/08/19 13:16 Pain Level 4 12/08/19 13:16
[2019-12-08] MEDS: Normal Saline 1,000 ML 1000 ML IV (13:51)
[2019-12-08 13:54] LABS: Abs Immature Grans 0.03 10^3/uL (0.0-0.06); Absolute Basophil Count 0.04 10^3/uL (0.0-0.2); Absolute Eosinophil Count 0.08 10^3/uL (0.0-0.7); Absolute Lymphocyte Count 2.72 10^3/uL (1.2-3.4); Absolute Monocyte Count 0.52 10^3/uL (0.1-0.8); Absolute Neutrophil Count 4.57 10^3/uL (1.2-6.7); Basophils % 0.5; HCT 40.1 % (36.0-46.0); HGB 13.3 g/dL (11.2-15.7); Immature Grans % 0.4; Lymphocytes % 34.2; MCH 30.7 pg (27.0-33.0); MCHC 33.2 % (32.0-36.0); MCV 92.6 fL (80-95); Monocytes % 6.5; Neutrophils % 57.4; Nucleated RBC 0 %; Platelet Count 300 10^3/uL (130-400); RBC 4.33 10^6/uL (3.93-5.22); RDW 12.1 % (11.7-14.6); RDW-SD 41.7 fL; WBC 7.96 10^3/uL (4.4-10.8)
[2019-12-08] MEDS: ACETAMINOPHEN 1,000 MG/100 ML BTL 400 MG IVPB (13:55)
[2019-12-08] MEDS: Normal Saline Flush 10 ML SYR IVP (13:56)
[2019-12-08 14:02] LABS: BUN 19 mg/dL (7-18); CREATININE 0.98 mg/dL (0.55-1.02); Chloride 102 mmol/L (98-107); Glucose 141 mg/dL (74-106); Potassium 3.4 mmol/L (3.5-5.1); Sodium 138 mmol/L (136-145)
[2019-12-08] MEDS: Normal Saline - Diluent 50 ML VIAL IV (14:23)
[2019-12-08] MEDS: Omnipaque 350 MG/ML 100 ML BTL IJ (14:38)
--- NOTE | 2019-12-08 14:39 | DI.CT_ITS ---
EXAM: CT BRAIN NECK CTA CLINICAL HISTORY: Recent R vert art dissect, no L neck pain. TECHNIQUE: Imaging Protocol: Axial CT angiography was performed with multi-slice acquisition and mu lti-planar and/or 3D reconstructions. CONTRAST MATERIAL: Intravenous: Omnipaque 350 Contrast volume:85 mL COMPARISON: CT CT BRAIN NECK CTA from 11/30/2019 FINDINGS: CT Head W/O: Ventricles and Extra axial spaces: Normal in size and morphology for the patient's age. Hemorrhage: None. Cerebral parenchyma: Normal. Midline shift: None. Brainstem/Cerebellum: Normal. Calvarium: Normal. Visualized Paranasal sinuses/Mastoids: Clear. Soft Tissues: Unremarkable. CTA Brain W: There is artifact from the patient's right-sided contrast injection. Internal Carotid Arteries: Petrous: Normal. Cavernous: Normal. Cerebral: Normal. Anterior Cerebral Arteries: Right: No aneurysm, occlusion or significant stenosis. Left: No aneurysm, occlusion or significant stenosis. Middle Cerebral Arteries: Right: No aneurysm, occlusion or significant stenosis. Left: No aneurysm, occlusion or significant stenosis. Posterior cerebral Arteries: Right: No aneurysm, occlusion or significant stenosis. Left: No aneurysm, occlusion or significant stenosis. Vertebral Arteries: Right: The right vertebral artery is very small, smaller than on the patient's prior examination fro m 11/30/2019. There is marked decrease in flow through the right vertebral artery at the C4-C5 level. The distal cervical right vertebral artery is poorly visualized. It is less well visualized when c ompared to the prior examination. Flow improved slightly at the skull base. The intradural right ve rtebral artery is very small. PICA origins are faintly visualized bilaterally. Superior cerebellar artery origins are identified. Left: No aneurysm, occlusion or significant stenosis. There is a dominant left vertebral artery. Basilar Artery: No aneurysm, occlusion or significant stenosis. CTA Neck W: Common Carotid: Right: No aneurysm, occlusion or significant stenosis. Left: No aneurysm, occlusion or significant stenosis. External Carotid: Right: No aneurysm, occlusion or significant stenosis. Left: No aneurysm, occlusion or significant stenosis. Internal Carotid: Right: No aneurysm, occlusion or significant stenosis. Left: No aneurysm, occlusion or significant stenosis. Vertebral Artery: Right: Please see above. Left: No aneurysm, occlusion or significant stenosis. Lung Apices: Normal. Bones: Normal. Soft Tissues: Normal. IMPRESSION: 1. Progression of right vertebral artery disease when compared to 11/30/2019. Right vertebral artery is smaller with decreased flow and compared to the prior examination. There is significant attenuati on of flow at the C4-C5 level. Flow in the distal cervical right vertebral artery is less well visua lized. 2. Unremarkable noncontrast CT Head. 3. If there is continued concern for ischemic change in the posterior circulation, an MRI may be obta ined for further evaluation. RADIATION DOSE DELIVERED: 991.72mGy.cm Total DLP DATA REPOSITORY: All CT scans at this facility are submitted to the National Radiology Data Registry (NRDR) Dose Index Registry (DIR) with the [employer] (ACR). RADIATION OPTIMIZATION: All CT scans at this facility use at least one of these dose optimization te chniques: automated exposure control; mA and/or kV adjustment per patient size (includes targeted exa ms where dose is matched to clinical indication); or iterative reconstruction.
[2019-12-08 15:33] VITALS: BP 108/71; PULSE 78; RESP 18; TEMP 36.4; O2SAT 98
--- NOTE | 2019-12-08 16:09 | DI.VRAD_ITS ---
PROCEDURE INFORMATION: Exam: CT Angiography Head With Contrast Exam date and time: 12/08/2019 2:25 PM Age: 29 years old Clinical indication: Headache and visual disturbance and weakness; Type not specified; Patient HX: Lt sided weakness, vision disturbance, fullness left side of neck. Dizzy. HX RT vert art dissection TECHNIQUE: Imaging protocol: Computed tomography angiography of the head with intravenous contrast. 3D rendering (Not supervised by radiologist): MIP and/or 3D reconstructed images were created by the technologist. Radiation optimization: All CT scans at this facility use at least one of these dose optimization techniques: automated exposure control; mA and/or kV adjustment per patient size (includes targeted exams where dose is matched to clinical indication); or iterative reconstruction. Contrast material: OMNI 350; Contrast volume: 85 ml; Contrast route: INTRAVENOUS (IV); COMPARISON: CT BRAIN NECK CTA 11/30/2019 10:24 AM FINDINGS: ANTERIOR CIRCULATION: Right internal carotid artery: Unremarkable. Intracranial segment is patent with no significant stenosis. No aneurysm. Right middle cerebral artery: Unremarkable. No occlusion or significant stenosis. No aneurysm. Right anterior cerebral artery: Unremarkable. No occlusion or significant stenosis. No aneurysm. Left internal carotid artery: Unremarkable. Intracranial segment is patent with no significant stenosis. No aneurysm. Left middle cerebral artery: Unremarkable. No occlusion or significant stenosis. No aneurysm. Left anterior cerebral artery: Unremarkable. No occlusion or significant stenosis. No aneurysm. POSTERIOR CIRCULATION: The left vertebral artery is dominant in the vertebrobasilar junction is patent. The intradural right vertebral artery is identified but is very small, smaller than on the patient's prior examination from 11/30/2019 although the vertebrobasilar junction is patent. PICA origins are visualized. Flow is unchanged throughout the basilar artery. Superior cerebellar artery origins are identified. P1 segments are present and flow is seen in both gas meter reader. There is a large right PCOM which was previously identified. The left P1 segment is larger than the right. Brain: The ventricles, sulci are unchanged. There is no new hemorrhage, mass or shift. There is no evidence of a new cortical or major vascular territory infarct. No new extra-axial collections are identified. There is no new abnormal intracranial contrast enhancement identified. Cerebral ventricles: No significant ventricular enlargement. Bones/joints: No acute bony abnormality. Soft tissues: Unremarkable. IMPRESSION: As described below there has been progression of right vertebral disease when compared with the patient's prior exam of 11/30/2019. Flow is seen in the intradural right vertebral artery but it is smaller in size than on the patient's prior exam. Vertebrobasilar junction remains patent. No new intracranial vascular abnormality is otherwise identified. To better evaluate for the presence of recent, acute or subacute ischemic change in the posterior circulation in the setting of right vertebral artery disease/dissection, MR correlation recommended. PROCEDURE INFORMATION: Exam: CT Angiography Neck With Contrast Exam date and time: 12/08/2019 2:25 PM Age: 29 years old Clinical indication: Headache and visual disturbance and weakness; Type not specified; Patient HX: Lt sided weakness, vision disturbance, fullness left side of neck. Dizzy. HX RT vert art dissection TECHNIQUE: Imaging protocol: Computed tomography angiography of the neck with intravenous contrast. 3D rendering (Not supervised by radiologist): MIP and/or 3D reconstructed images were created by the technologist. Radiation optimization: All CT scans at this facility use at least one of these dose optimization techniques: automated exposure control; mA and/or kV adjustment per patient size (includes targeted exams where dose is matched to clinical indication); or iterative reconstruction. Contrast material: OMNI 350; Contrast volume: 85 ml; Contrast route: INTRAVENOUS (IV); COMPARISON: CT BRAIN NECK CTA 11/30/2019 10:24 AM FINDINGS: There is artifact from the patient's right-sided contrast injection. CT angiography of the aortic arch demonstrates that the origin of the brachiocephalic, left common carotid artery left subclavian artery origin is patent. The vertebral artery origins are visualized bilaterally although the right is less well visualized secondary to artifact from the right-sided injection. The left vertebral artery is dominant in the neck. The right vertebral artery is very small, smaller than on the patient's prior examination from 11/30/2019.. Flow significantly attenuates in the right vertebral artery at approximately the C4-C5 level. This was previously identified.. The distal cervical right vertebral artery is very small, poorly visualize, less well visualized than on the patient's prior exam.. Flow improves slightly in the right vertebral artery at the skull base. The intradural right vertebral artery is very small but the vertebrobasilar junction is patent bilaterally. PICA origins are faintly visualized bilaterally. The left is larger than the right. There is no significant stenosis of either common, internal or external carotid artery. There is no intraluminal filling defect, intravascular thrombus nor evidence of acute carotid dissection. Bones/joints: No acute fracture. Soft tissues: No evidence of a discrete soft tissue mass in the neck. No significant adenopathy No significant airspace consolidation at the lung apices. IMPRESSION: There has been interval progression of right vertebral disease when compared with prior examination of 11/30/2019. The right vertebral artery is smaller with decreased flow than on the patient's prior exam. There is significant attenuation of flow at the C4-C5 level which was previously identified. Flow is seen in the distal cervical right vertebral artery but it is significantly attenuated and less well seen than on the patient's prior exam. There is no significant abnormality of the carotid arteries or the left vertebral artery. REFERENCES: NASCET CRITERIA. The degree of internal carotid artery stenosis is based on NASCET criteria. Normal is no stenosis. Mild is less than 50% stenosis. Moderate is 50-69% stenosis. Severe is 70% to 99% stenosis. Total occlusion is no detectable patent lumen. Dictated and Authenticated by: Cady Wesley MD. Ordering:CHUY Gallardo MD
[2019-12-08 17:13] VITALS: BP 113/73; PULSE 70; RESP 14; TEMP 37.2; O2SAT 98
== END 2019-12-08 17:28 | disposition home or self-care (01) ==
PROVIDERS: Emergency Provider Emergency Medicine; PCP Nurse Practitioner
DX: M62.838 Other muscle spasm (principal); E86.0 Dehydration
CPT/HCPCS: 36415; 36416; 70496; 70498; 80048; 82962; 93005; 96361; 96374; 99285; 85025; 93010; 99284; J0131; J3490

== ENCOUNTER 2020-10-12 02:19 | Outpatient (CLI) | payer OTHER, SELFPAY ==
[2020-10-12 15:13] LABS: Abs Immature Grans 0.05 10^3/uL (0.0-0.06); Absolute Basophil Count 0.03 10^3/uL (0.0-0.2); Absolute Eosinophil Count 0.14 10^3/uL (0.0-0.7); Absolute Lymphocyte Count 2.61 10^3/uL (1.2-3.4); Absolute Monocyte Count 0.73 10^3/uL (0.1-0.8); Absolute Neutrophil Count 5.38 10^3/uL (1.2-6.7); Basophils % 0.3; Eosinophils % 1.6; HCT 37.8 % (36.0-46.0); HGB 12.7 g/dL (11.2-15.7); Immature Grans % 0.6; Lymphocytes % 29.2; MCH 30.4 pg (27.0-33.0); MCHC 33.6 % (32.0-36.0); MCV 90.4 fL (80-95); MPV 11.7 fL (8.0-11.0); Monocytes % 8.2; Neutrophils % 60.1; Nucleated RBC 0 %; Platelet Count 207 10^3/uL (130-400); RBC 4.18 10^6/uL (3.93-5.22); RDW-SD 39.9 fL; WBC 8.94 10^3/uL (4.4-10.8)
[2020-10-12 16:38] LABS: TSH (W/Ref FT4) 1.51 uIU/mL (0.36-3.74)
[2020-10-14 10:00] LABS: Hepatitis B Surface Ag Negative (Negative)
[2020-10-14 11:31] LABS: Hepatitis C Ab w Rflx HCV PCR Negative (Negative)
[2020-10-14 11:42] LABS: Varicella IgG Antibody Positive (See Note)
[2020-10-14 11:47] LABS: Rubella IgG Ab (UVM) Positive (See Note)
[2020-10-14 14:13] LABS: HIV-1/2 Ag & Ab Screen Reactive (Negative)
[2020-10-14 16:20] LABS: Syphilis Total Ab w/Reflex Nonreactive (Nonreactive)
[2020-10-14 16:51] LABS: HIV 1 Ab Diff Negative (Negative)
[2020-10-14 16:52] LABS: HIV 2 Ab Diff Negative (Negative)
== END 2020-10-12 02:20 | disposition home or self-care (01) ==
LOC: LBO 02:19
PROVIDERS: Advanced Practice Midwife; PCP Nurse Practitioner; Visit Provider Advanced Practice Midwife
DX: Z34.91 Encounter for supervision of normal pregnancy, unspecified, first trimester (principal); Z11.4 Encounter for screening for human immunodeficiency virus [HIV]; Z11.59 Encounter for screening for other viral diseases; Z01.84 Encounter for antibody response examination; Z3A.10 10 weeks gestation of pregnancy
CPT/HCPCS: 36415; 86701; 86702; 86787; 86803; 86850; 86900; 86901; 87340; 87389; 84443; 85025; 86762; 86780

== ENCOUNTER 2020-10-12 14:42 | Outpatient (REF) | payer OTHER, SELFPAY ==
--- NOTE | 2020-10-12 14:00 | PAPFT_PTH ---
PATIENT: Tara Guerrier LOC: [facility] U#:[id number] AGE/SX: 30/F ROOM: RE10/12/[address]: Allison Farnsworth CNM : 1990 BED: DIS: 10/12/2020 SPEC #: [id number] RECD: 10/12/20 17:41 STATUS: MATTEO REEddie #: [id number] KYLAH: 10/12/20 14:[address]: Allison Farnsworth DEPT: [facility] Cytology RECD BY: Carolyne Shelton ENTERED: 10/12/20 17:42 SP TYPE: PAPFT OTHR DR: Maggie Gutiérrez Tissues: 1 - CX/ENDOCX FOR PAP SMEARS Procedures: PAP THIN PREP/UVM Screening HPV DNA PROBE Comments: [id number]
[2020-10-12 16:40] LABS: *AMPHETAMINES SCREEN URINE Negative (Negative); *BARBITURATES SCREEN URINE Negative (Negative); *BENZODIAZEPINES SCREEN URINE Negative (Negative); Cannabinoids THC Negative (Negative); Cocaine Screen,Urine Negative (Negative); METHADONE URINE SCREEN Negative (Negative); OPIATES URINE SCREEN Negative (Negative)
[2020-10-12 16:47] LABS: Tricyclic Antidepressants Negative (Negative)
[2020-10-14 15:20] LABS: Chlamydia Result Negative (Negative); GC Result Negative (Negative)
[2020-10-16 11:00] LABS: Buprenorphine Negative ng/mL (Cutoff: 5.0); Norbuprenorphine Negative ng/mL (Cutoff: 2.5)
== END 2020-10-12 14:43 | disposition home or self-care (01) ==
LOC: LBN 14:42
PROVIDERS: PCP Nurse Practitioner; Visit Provider Advanced Practice Midwife
DX: Z34.91 Encounter for supervision of normal pregnancy, unspecified, first trimester (principal); Z11.3 Encounter for screening for infections with a predominantly sexual mode of transmission; Z12.4 Encounter for screening for malignant neoplasm of cervix; Z11.51 Encounter for screening for human papillomavirus (HPV)
CPT/HCPCS: 80307; 87491; 87591; 88142; 87086; 87624

== ENCOUNTER 2021-05-10 02:49 | Emergency (ER) | payer OTHER, SELFPAY ==
[2021-05-10 02:57] VITALS: BP 138/50; PULSE 78; RESP 16; TEMP 36.4; O2SAT 100
--- NOTE | 2021-05-10 02:58 | ED.GENADUL_ITS ---
Discharge Plan Disposition Patient Disposition: HOME Condition: Stable Discharge Details Clinical Impression: Abdominal pain Primary Care Provider: Maggie Gutiérrez ED Provider: Franklyn Parson Home Meds and New Rx's Prescriptions: Continued PNV cmb#95-ferrous fumarate-FA 28 mg iron- 800 mcg tablet 1 tab PO DAILY 0RF Label Comments: gummies acetaminophen 500 mg Tablet 1,000 mg PO PRN PRN0RF ferrous sulfate [iron] 325 mg (65 mg iron) Tablet 325 mg PO DAILY 0RF Discharge Instructions Additional Instructions: your blood work and cat scan did not show concerning findings at this time follow up with your obgyn if you have severe worsening pain, fevers or feel more ill return to the emergency department Medical Decision Making 31 yo female with hx of prior vertebral dissection who had an uneventful vaginal delivery a week ago per patient at [facility] comes in with sudden onset lower abdomen pain while going to bed about 1-2 hours ago. She states she has not had pain like this before and denies any increased vaginal bleeding (has had some intermittent mild spotting since [facility] [place], operated by [facility]) and no other discharge. Denies fevers or chills. Denies prior abdominal surgeries. She states the pain comes in waves and can't think of anything that makes it come on or get better. She arrives stable though appears to be in discomfort. She has no upper abdomen tenderness, no right sided lower abdomen tenderness but is tender in the lower mid and left lower abdomen. Given sudden onset of her pain and degree of pain concern for etiologies such kidney stone vs diverticulitis vs pneumoperitoneum, will obtain labs and ct abd/pelvis to further evaluate. pt feels significantly better after one dose of toradol and states pain resolved, has minimal tenderness with deep palpation to the llq. Alk phos elevated but can be expected after . CT read as negative by vrad. I did recommend patient stay and have u/s given the new pain she had but given her pain has resolved she declines to stay for further testing or evaluation. She has capacity to make her own decisions and given her pain resolved with one dose of toradol with reassuring CT feel this is a reasonable decision. She is going to f/u with her obgyn at [facility] and return precautions given Differential Diagnosis Differential Diagnosis: post cramps, ovarian cyst, appendicitis Medical Records Medical records reviewed: Yes I reviewed the patient's medical records. Imaging Data Radiologic Study: Attestation: I personally reviewed and interpreted this imaging study as follows: Imaging: CT Scan Radiologist's impression: IMPRESSION: Enlarged, heterogeneously enhancing uterus. Lab Data Lab results reviewed: Yes I reviewed the patient's lab results. HPI General Mode of arrival: ambulatory . Date/Time Provider Initiated Documentation: 05/10/21 02:51 . Limitations to Documentation: no limitations . Information obtained by: patient . History of Present Illness 31 year old F presents to the emergency department with the chief complaint of abdominal pain, described as severe, Quality is described as stabbing, and is localized to the abdomen. Patient reports no radiation. Patient started experiencing this week(s) (1) and it has been constant. improves with No relieving factors improve symptom(s), No exacerbating factors reported . Patient notes no other symptoms.. Patient did receive the following treatments prior to arrival, none Related Data Home Medications Medication Instructions Recorded Confirmed acetaminophen 500 mg tablet 1,000 mg PO PRN PRN 12/08/19 05/10/21 vit no.95-ferrous 1 tab PO DAILY 09/24/20 05/10/21 fumarate 28 mg-folic acid 800 mcg tablet ferrous sulfate 325 mg (65 mg 325 mg PO DAILY 05/10/21 05/10/21 iron) tablet (iron) Allergies Allergy/AdvReac Type Severity Reaction Status Date / Time No Known Allergies Allergy Verified 05/10/21 03:01 General CRISTAL: 2 Review of Systems All systems reviewed & are unremarkable except as noted in HPI and below Constitutional Constitutional: Denies chills, Denies fever(s) and Denies weakness Eyes Eyes: Denies loss of vision Cardiovascular Cardiovascular: Denies chest pain and Denies dyspnea Respiratory Respiratory: Denies cough and Denies dyspnea Gastrointestinal Gastrointestinal: Denies vomiting Genitourinary Genitourinary: Denies dysuria Integumentary/Breasts Skin/Breast: Denies rash Neurologic Neurologic: Denies loss of vision and Denies weakness PFSH All Active Problems (Updated 05/10/21 @ 04:17 by Franklyn Parson MD) Abdominal pain (Acute) Vertebral artery dissection (Acute) 11/2019. R sided. Occured when lifting weights at gym. No infarct. No occlusion. Will recommend [facility] consult. 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 Date GA/Weeks # Outcome Route Wgt Sex Labor Lgth Anesthes ia Location [facility] 10/14/14 39 No Successful vaginal 3458.642 g Female 5 hrs Homar CNM Delivery Date: 10/14/14 Last Updated by: Елена Farnsworth Nml , no complications, [place] Exam Const General: no acute distress Orientation: alert HENWY Head: normal to inspection Ears: external ears normal General nose exam: external nose normal Mouth: moist mucous membranes Eyes General: appearance normal, both eyes and all related structures Neck Neck: normal visual inspection Resp Effort & Inspection: normal respiratory effort and able to speak in complete sentences Cardio Rate: regular rate GI Palpation: soft Skin General skin exam: no rashes or lesions noted Neuro General: patient alert and patient oriented x3 Extrem General: normal to inspection Psych Mental Status: mental status grossly normal
--- NOTE | 2021-05-10 03:00 | DI.CT_ITS ---
Exam(s) CT ABDOMEN PELVIS W EXAM: CT ABDOMEN PELVIS W CLINICAL HISTORY: severe LL abdomen pain 1 week s/p vaginal delivery. TECHNIQUE: Imaging Protocol: Axial computed tomography images with coronal and sagittal reformatted images were created and reviewed CONTRAST MATERIAL: Intravenous: Omnipaque 350 Contrast volume:100 ml Oral: yes / no COMPARISON: CT CT BRAIN NECK CTA from 12/08/2019 FINDINGS: ABDOMEN: Lung Bases: Normal where visualized. Liver: Normal density. No measurable mass. Gallbladder and biliary tract: No radiodense calculus or dilation. Pancreas: Normal density, no abnormal calcifications or inflammatory process. Spleen: Normal. Kidneys: Normal size, contour and axis. No radiodense stones or obstructive uropathy. No masses seen. Adrenal glands: No masses seen. Abdominal Aorta: Abdominal portion non-dilated. PELVIS: Bladder: No gross wall thickening. No calculi.No focal mass. Bowel: No obstruction or bowel wall thickening. Appendix normal. Peritoneal cavity: No ascites, collection or mesenteric inflammatory response. Bones: Within normal limits for age. Reproductive organs: Enlarged uterus. The patient is 1 week status post vaginal delivery.. Lymph nodes: Unremarkable. Impression: Enlarged uterus status post vaginal delivery. Remainder of the exam is unremarkable. RADIATION DOSE DELIVERED: 808.01mGy.cm Total DLP DATA REPOSITORY: All CT scans at this facility are submitted to the National Radiology Data Registry (NRDR) Dose Index Registry (DIR) with the [employer] ([employer]). RADIATION OPTIMIZATION: All CT scans at this facility use at least one of these dose optimization te chniques: automated exposure control; mA and/or kV adjustment per patient size (includes targeted exa ms where dose is matched to clinical indication); or iterative reconstruction.
[2021-05-10] MEDS: Normal Saline 1,000 ML 1000 ML IV (03:09)
[2021-05-10] MEDS: Ketorolac 15 MG/ML VIAL IVP (03:09)
[2021-05-10] MEDS: Omnipaque 350 MG/ML 100 ML BTL IJ (03:14)
[2021-05-10] MEDS: Normal Saline Flush 10 ML SYR IVP (03:15)
[2021-05-10 03:23] LABS: Bilirubin Negative (Negative); Blood Small (Negative); Clarity Clear (Clear); Glucose Negative (Negative); Ketones Negative (Negative); Leukocyte Esterase Negative (Negative); Nitrite Negative (Negative); Specific Gravity 1.025 (1.005-1.025); Urobilinogen 0.2 EU/dL (Up TO 0.2); pH 5.5 (5-8)
[2021-05-10 03:29] LABS: Abs Immature Grans 0.08 10^3/uL (0.0-0.06); Absolute Basophil Count 0.07 10^3/uL (0.0-0.2); Absolute Eosinophil Count 0.29 10^3/uL (0.0-0.7); Absolute Monocyte Count 0.63 10^3/uL (0.1-0.8); Absolute Neutrophil Count 4.35 10^3/uL (1.2-6.7); Basophils % 0.9; Eosinophils % 3.5; HCT 43.3 % (36.0-46.0); HGB 13.7 g/dL (11.2-15.7); Lymphocytes % 34.1; MCHC 31.6 % (32.0-36.0); MCV 91.5 fL (80-95); MPV 11.2 fL (8.0-11.0); Monocytes % 7.7; Neutrophils % 52.8; Nucleated RBC 0 %; Platelet Count 265 10^3/uL (130-400); RBC 4.73 10^6/uL (3.93-5.22); RDW 15.7 % (11.7-14.6); RDW-SD 52.2 fL; WBC 8.22 10^3/uL (4.4-10.8)
[2021-05-10 03:32] LABS: Bacteria Negative HPF (Negative); C & S Indicated? No; Casts Negative LPF (Negative); Crystals Negative HPF (Negative); Epithelial Cells Negative HPF (Negative); Mucus Negative (Negative); RBC 0-2 HPF (0-2); WBC Negative HPF (0-5)
[2021-05-10 03:39] LABS: ALT 32 U/L (14-59); AST 23 U/L (15-37); Albumin 3.1 g/dL (3.4-5.0); Alkaline Phosphatase 188 U/L (46-116); Anion Gap 10.5 mmol/L (3-11); BUN 28 mg/dL (7-18); Bilirubin, Direct < 0.1 mg/dL (0.0-0.2); Bilirubin, Total 0.2 mg/dL (0.2-1.0); CO2 24.5 mmol/L (21.0-32.0); CREATININE 0.8 mg/dL (0.55-1.02); Calcium 8.9 mg/dL (8.5-10.1); Chloride 104 mmol/L (98-107); Glucose 92 mg/dL (74-106); Lipase 141 U/L (73-393); Potassium 3.9 mmol/L (3.5-5.1); Sodium 139 mmol/L (136-145); Total Protein 7.6 g/dL (6.4-8.2)
--- NOTE | 2021-05-10 03:48 | DI.VRAD_ITS ---
PROCEDURE INFORMATION: Exam: CT Abdomen And Pelvis With Contrast Exam date and time: 05/10/2021 3:06 AM Age: 31 years old Clinical indication: Abdominal pain; Localized; Lower; Patient HX: Severe ll abdomen pain 1 week S/P vaginal delivery TECHNIQUE: Imaging protocol: Computed tomography of the abdomen and pelvis with contrast. Radiation optimization: All CT scans at this facility use at least one of these dose optimization techniques: automated exposure control; mA and/or kV adjustment per patient size (includes targeted exams where dose is matched to clinical indication); or iterative reconstruction. Contrast material: OMNIPAQUE 350; Contrast volume: 90 ml; Contrast route: INTRAVENOUS (IV); COMPARISON: OB US 2-3 TRIMESTER TRANSABD*P 05/19/2014 5:24 PM FINDINGS: Lungs: Lung bases are normal. Liver: The liver is normal. There are no hepatic masses. There is no intrahepatic biliary ductal dilatation. Gallbladder and bile ducts: The gallbladder is normal. There is no extrahepatic biliary ductal dilatation. Pancreas: The pancreas is normal with no ductal dilatation. Spleen: The spleen is normal, with no splenic masses. Adrenal glands: Bilateral adrenal glands are normal with no masses. Kidneys and ureters: Kidneys are normal bilaterally, with no hydronephrosis or hydroureter. Stomach and bowel: There is no evidence of obstruction. There is no significant mucosal thickening. Appendix: The appendix is normal. Intraperitoneal space: There is no intra-abdominal free air. There is no extraluminal fluid collection. Vasculature: Abdominal vasculature is normal. There is no abdominal aortic aneurysm. Lymph nodes: There is no significant lymphadenopathy. Urinary bladder: The urinary bladder is normal. There are no bladder calculi. Reproductive: The uterus is enlarged, 14.9 x 10.6 cm, and heterogeneously enhancing. Bones/joints: There is no acute osseous pathology. Soft tissues: Soft tissues are unremarkable. IMPRESSION: Enlarged, heterogeneously enhancing uterus. Dictated and Authenticated by: Azeem Murrell MD. Ordering:DAMARIS Estes MD
[2021-05-10 03:59] LABS: Source Nasal/Nares
[2021-05-10 04:01] VITALS: BP 146/83; PULSE 78; RESP 16; O2SAT 99
[2021-05-10 04:36] LABS: COVID-19 PCR Negative (Negative)
== END 2021-05-10 04:37 | disposition home or self-care (01) ==
PROVIDERS: Emergency Provider Emergency Medicine; PCP Nurse Practitioner
DX: R10.9 Unspecified abdominal pain (principal)
CPT/HCPCS: 80053; 83690; 87635; 96361; 96374; 99283; 99285; 74177; 81003; 81015; 82248; 83735; 85025; J1885; J3490

== ENCOUNTER 2022-02-02 19:41 | Outpatient (REF) | payer OTHER, SELFPAY ==
[2022-02-05 10:54] LABS: COVID-19 RT-PCR UVMMC Result Negative (Negative)
== END 2022-02-02 19:42 | disposition home or self-care (01) ==
LOC: LBN 19:41
PROVIDERS: PCP Nurse Practitioner; Visit Provider Physician Assistant Medical
DX: R05.8 Other specified cough (principal); Z20.822 Contact with and (suspected) exposure to COVID-19
CPT/HCPCS: U0003

== ENCOUNTER 2023-12-01 11:41 | Outpatient (CLI) | payer BC, SELFPAY ==
--- NOTE | 2023-12-01 | DI.RAD_ITS ---
Exam(s) XR CHEST 2V PA LATERAL EXAM: XR CHEST 2V PA LATERAL CLINICAL HISTORY: COUGH,R05.9 TECHNIQUE: 2D digital imaging was performed. Two views. COMPARISON: CR,XR XR CHEST 2V PA LATERAL from 11/30/2019 FINDINGS: HEART: Normal size. Aorta: Not dilated. PULMONARY VASCULATURE: Normal. MEDIASTINUM: Unremarkable. LUNGS: Patchy infiltrate posterior left lower lobe. Remainder of the lung dee are clear. PLEURAL SPACE: No pleural effusion or pneumothorax. BONE:Unremarkable for age. SOFT TISSUES: Unremarkable. IMPRESSION: Left lower lobe pneumonia. DATA REPOSITORY: RADIATION DOSE DELIVERED:
--- OUTSIDE RECORDS SUMMARY | 2023-12-01 11:46 | XMS_ITS | Data Portability ---
Author Organization [facility] Address Lucero Vill[place] [address] Care Team Providers Care Business Development Professional Name Role Phone ROBIN JONES Primary Care Provider Assessment No assessment recorded. Plan of Treatment Reminders Order Date Submit Date Provider Last Modified By Organization Details Last Modified Time Details Appointments Acute 10 2023 09:29A M Not available Not available Not available Lab None recorded. Referral None recorded. Procedures None recorded. Surgeries None recorded. Imaging None recorded. Medication Orders Estarylla 0.25 mg-35 mcg tablet 2023 04 024 BR[id number], [address], [place], [address], 12/01/2023 10:12:53 Patient TargetsNo targets recorded. Patient Instructions Encounter Date Encounter Id Patient Instructions Last Modified By Organization Details Last Modified Time 06/14/2023 [id number] 1 year follow up for your next annual exam. Follow up with women's wellness for routine cervical cancer screening. I will request neurology records from [facility] re- history of your vertebral artery dissection in 2020 (neurology records are not currently available within your chart for review). Please do not hesitate to reach out with any questions or concerns over the next year. [email or web address] Not available 06/14/2023 15:48:30 Reason for Referral None Reported. Results Created Date Observation Date Name Description Value Unit Range Abnormal Flag Note LastModifiedBy Organization Detail LastModifiedTime 12/01/19 24 12/01/2023 influ liza virus A + B + SARS- CoV-2 (COVI D19) Ag panel , rapid IA, upper respi rator y speci men Influenza A negati ve Not Available [address], [place], [address], 12/01/2023 10:24:36 12/01/19 24 12/01/2023 influ liza virus A + B + SARS- CoV-2 (COVI D19) Ag panel , rapid IA, upper respi rator y speci men Influenza B negati ve Not Available [address], [place], [address], 12/01/2023 10:24:36 12/01/19 24 12/01/2023 influ liza virus A + B + SARS- CoV-2 (COVI D19) Ag panel , rapid IA, upper respi rator y speci men SARS-COV-2 negati ve Not Available [address], [place], [address], 12/01/2023 10:24:36 12/01/19 24 12/01/2023 rapid strep group A, throa t Strep negati ve Not Available [address], [place], [address], 12/01/2023 10:24:58 11/27/19 24 02/02/2022 imagi ng/di agnos tic resul t No observ ation record ed. [email or web address] Not Available 11/26 01:24:35 11/27/19 24 11/30/2019 imagi ng/di agnos tic resul t No observ ation record ed. [email or web address] Not Available 11/26 01:24:48 11/27/19 24 12/08/2019 imagi ng/di agnos tic resul t No observ ation record ed. [email or web address] Not Available 11/26 01:24:52 11/27/19 24 11/30/2019 imagi ng/di agnos tic resul t No observ ation record ed. [email or web address] Not Available 11/26 01:25:31 11/27/19 24 11/30/2019 imagi ng/di agnos tic resul t No observ ation record ed. [email or web address] Not Available 11/26 01:25:32 11/27/19 24 12/08/2019 imagi ng/di agnos tic resul t No observ ation record ed. [email or web address] Not Available 11/26 01:25:33 11/27/19 24 05/10/2021 imagi ng/di agnos tic resul t No observ ation record ed. [email or web address] Not Available 11/26 01:25:34 11/27/19 24 12/02/2020 imagi ng/di agnos tic resul t No observ ation record ed. [email or web address] Not Available 11/26 01:25:41 11/27/19 24 11/30/2019 imagi ng/di agnos tic resul t No observ ation record ed. [email or web address] Not Available 11/26 01:25:42 11/27/19 24 12/10/2019 imagi ng/di agnos tic resul t No observ ation record ed. [email or web address] Not Available 11/26 01:25:43 11/27/19 24 05/10/2021 imagi ng/di agnos tic resul t No observ ation record ed. [email or web address] Not Available 11/26 01:25:44 11/27/19 24 11/30/2019 imagi ng/di agnos tic resul t No observ ation record ed. [email or web address] Not Available 11/26 01:25:51 12/01/19 24 12/01/2023 XR, chest , 2 view Patien t Name: Tara Guerrier Dusty Unit #: [id number] Loc: DI Orderi ng Provid er: Shaina Purcell Acckike t #: [id number] Status : PRE CLI Primar y Care Provid er: Date of Exam: Sex: F Admiss ion Date: : 1990 Age: 33 Exam(s ) XR CHEST 2V PA LATERA L EXAM: XR CHEST 2V PA LATERA L CLINIC AL HISTOR Y: COUGH, R05.9 TECHNI QUE: 2D digita l imagin g was perfor med. Two views. COMPAR TORREY: CR,XR XR CHEST 2V PA LATERA L from 2019 FINDIN GS: HEART: Normal size. Aorta: Not dilate d. PULMON SRAVANI VASCUL ATURE: Normal . MEDIAS TINUM: Unrema rkable . LUNGS: Patchy infilt rate sap bw developer ior left lower lobe. Remain ashwin of the lung dee are clear. PLEURA L SPACE: No pleura l effusi on or pneumo thorax . BONE:U nremar kable for age. SOFT TISSUE S: Unrema rkable . IMPRES GET: Left lower lobe pneumo rosibel. DATA REPOSI TORY: RADIAT ION DOSE DELIVE RED: Ordere d By: Shaina Purcell CC: ------ ------ ------ ------ ------ ------ ------ ------ ------ ------ ------ ------ - Dictat ed By: Ramana Tinoco [id number] Transc ribed By: Petra Salcedo 1127 This is privil eged, confid ential inform ation intend ed only for the provid er named. Any use or distri bution by any person other than this [facility] er is strict ly prohib ited. If you receiv e this report in error, please notify us immedi marisaly at and return the origin al report to us at the addres s above. Thank- you. [email or web address] [facility] [address], [place], [address], 12/01/2023 11:42:25 Result Notes Documentation Provider Name and Address Organization Details Recorded Time Xr, Chest, 2 View : Patient Name: Tara Guerrier Unit #: [id number] Loc: DI Ordering Provider: Shaina Purcell 5 Status: PRE CLI Primary Care Provider: Date of Exam: 12/01/23 Sex: F Admission Date: 12/01/23 : 1990 Age: 33 Exam(s) XR CHEST 2V PA LATERAL EXAM: XR CHEST 2V PA LATERAL CLINICAL HISTORY: COUGH,R05.9 TECHNIQUE: 2D digital imaging was performed. Two views. COMPARISON: CR,XR XR CHEST 2V PA LATERAL from 11/30/2019 FINDINGS: HEART: Normal size. Aorta: Not dilated. PULMONARY VASCULATURE: Normal. MEDIASTINUM: Unremarkable. LUNGS: Patchy infiltrate posterior left lower lobe. Remainder of the lung dee are clear. PLEURAL SPACE: No pleural effusion or pneumothorax. BONE:Unremarkable for age. SOFT TISSUES: Unremarkable. IMPRESSION: Left lower lobe pneumonia. DATA REPOSITORY: RADIATION DOSE DELIVERED: Ordered By: Shaina Purcell CC: - Dictated By: Ruby Salcedo M.D. 12/01/23112612/01/231126 Transcribed By: Ruby Salcedo 12/01/231126 This is privileged, confidential information intended only for the provider named. Any use or distribution by any person other than this provider is strictly prohibited. If you receive this report in error, please notify us immediately at [phone] and return the original report to us at the address above. Thank-you. Glenna Calhoun MA [facility], [place] - [facility]. 12/01/2023 11:42:25 Problems Name Problem SNOMED Code Status Onset Date Resolution Date Notes Provider Name and Address Organization Details Recorded Time Acute pharyngi tis 841729545 Completed 201708/08/2017 Problem Code: J02.9; Problem Code Type: ICD-10; Not Available [facility] 3 05:12:34 Acute bronchit is 29120499 Completed 201908/03/201920 20 - Comments only - Britt Koroma Alex OUTPATIENT CODING SPECIALIST - Post-inf ectious, likely triggere d by recent URI (runny nose, sinus congesti on, post-bridget al drip). Not consiste nt with COVID-19 . Afebrile , VSS. Physical exam reassuri ng. Discusse d symptoma tic mgmt for cough and sinusiti s (mucinex DM, humidity , sinus rinses/s prays, Vicks). Pt to call if she would like an rx for tessalon perles. Discusse d red flag sx indicati ng need for further assessme nt (SOB, fever/ch ills, chest pain, worsenin g cough) and emergenc y care (difficu lty breathin g). PT comforta ble with plan of care, discharg e instruct ions given. Problem Code: J20.9; Problem Code Type: ICD-10; Not Available [facility] 3 05:12:34 Adult health examinat ion Completed 201908/20/2019 Belinda marie, [facility], [facility] 4 02:20:55 Dissecti on of vertebra l artery 494280029 Completed 201912/02/2019 Problem Code: I77.74; Problem Code Type: ICD-10; ROBIN JONES, OUTPATIENT CODING SPECIALIST [address], [place], [address] , [facility], [facility] 4 15:51:09 Disorder of skin and/or subcutan eous tissue 20659851 Completed 202110/23/2021 Problem Code: L98.8; Problem Code Type: ICD-10; Belinda marie, [facility], [facility]. 4 03:44:25 Cough 77320970 Completed 202106/14/2022 Problem Code: R05.8; Problem Code Type: ICD-10; SHAINA PURCELL PA-C [address], [place], [address] , [facility] 4 10:59:13 Acute upper respirat ory infectio n 12833822 Completed 202103/21/2022 Tia Kirsten null, [place] - [facility] 4 02:11:14 Chest pain 64436244 Completed 202103/21/2022 Tia Kirsten null, [place] - [facility] 4 02:41:02 Pain of ear 602064265 Completed 201703/22/2018 12/16/19 18 - Comments only - Chris Weems - She was seen in the [facility] ER last night and diagnose d with phlegmon ous pharyngt is and treated with IV augmenti n and predniso ne. She appears to be doing much better today with jaw/ear pain down to a 1/10 from 10/20 yesterda y. The plan is to have her continue the medicati ons prescrib ed to her in the ER: augmenti n 125 mg po qd and predniso ne 20 mg taken per taper instruct ions. If she gets worse or does not improve, she will call back and be sent to an ENT speciali st. Problem Code: H92.09; Problem Code Type: ICD-10; Not Available [facility] 3 05:12:39 Streptoc occal sore throat 12094604 Completed 201712/07/2022 Problem Code: J02.0; Problem Code Type: ICD-10; Not Available [facility] 3 05:12:45 Acute pharyngi tis 749083911 Completed 201708/20/2019 Problem Code: J02.9; Problem Code Type: ICD-10; Not Available [facility] 3 05:12:45 Impacted cerumen of bilatera l ears 70524797657 17990 Completed 201607/25/2017 Problem Code: H61.23; Problem Code Type: ICD-10; Not Available [facility] 3 05:12:51 Dissecti on of vertebra l artery 533448115 Active 2023 - hx of right vertebra l artery dissecti on ROBIN JONES, RON [address], [place], [address] , [facility] 4 15:51:09 Tight chest 60963103 Active 2023 ROBIN JONES, OUTPATIENT CODING SPECIALIST [address], [facility] [address] [place] [address] 4 15:50:58 Cough 31473323 Active 2023 Problem Code: R05.8; Problem Code Type: ICD-10; [address], [facility] [address] [place] [address] 10:59:13 Influenz a-like illness 62301058 Active 2023 SHAINA PURCELL PA-C [address], [facility] [address] [place] [address] 11:07:14 Problem Notes None recorded. Procedures Surgical History None recorded. Imaging Results Imaging Date Name Status LastModified by [facility] Details LastModified Time 02/02/2022 imaging/diag nostic result completed Information not available 11/27/2023 01:24:35 11/30/2019 imaging/diag nostic result completed Information not available 11/27/2023 01:24:48 12/08/2019 imaging/diag nostic result completed Information not available 11/27/2023 01:24:52 11/30/2019 imaging/diag nostic result completed Information not available 11/27/2023 01:25:31 11/30/2019 imaging/diag nostic result completed Information not available 11/27/2023 01:25:32 12/08/2019 imaging/diag nostic result completed Information not available 11/27/2023 01:25:33 05/10/2021 imaging/diag nostic result completed Information not available 11/27/2023 01:25:34 12/02/2020 imaging/diag nostic result completed Information not available 11/27/2023 01:25:41 11/30/2019 imaging/diag nostic result completed Information not available 11/27/2023 01:25:42 12/10/2019 imaging/diag nostic result completed Information not available 11/27/2023 01:25:43 05/10/2021 imaging/diag nostic result completed Information not available 11/27/2023 01:25:44 11/30/2019 imaging/diag nostic result completed Information not available 11/27/2023 01:25:51 12/01/2023 XR, chest, 2 view active [email or web address], [place], [address], 12/01/2023 11:42:25 Procedure Notes None recorded. Medical Equipment None Reported. Allergies No known drug allergies Medications Name Sig Start Date Stop Date Status Note LastModified by Organization Details LastModified Time Prescript ion - Renewal 11/30 completed ESTARYLL A TABLETS 28S Not Available Not Available Not Available clindamyc in HCl 300 mg capsule Take 1 cap by mouth four times daily 12/24 completed Not Available Not Available Not Available benzonata te 200 mg capsule Take 1 capsule 3 times a day by oral route as needed for 7 days, for cough. 2023 active Not Available Not Available Not Avai lable prednison e 20 mg tablet take per taper instruct ions 03/26 completed [facility] Not Available Not Available Not Available penicilli n V potassium 500 mg tablet 1 tab twice daily 08/04 completed Not Available Not Available Not Available Cipro 500 mg tablet 1 tab twice a day for 10 days 12/14 completed Not Available Not Available Not Available albuterol sulfate HFA 90 mcg/actua tion aerosol inhaler Inhale 2 puffs every 4 hours by inhalati on route as needed for 14 days, for Coughing fits, shortnes s of breath, wheeze. 2023 active Not Available Not Available Not Avai lable amoxicill in 875 mg-potass ium clavulana te 125 mg tablet Take 1 tablet by mouth twice a day 03/28 completed Not Available Not Available Not Available Floxin Otic 10 GTTS twice daily 01/17 completed Medicati onName: 'FLOXIN OTIC 0.3%'; Not Available Not Available Not Available 1TAB daily 12/08 completed Not Available Not Available Not Available Tri-Sprin meghann (28) 1TAB daily 05/05 completed Not Available Not Available Not Available Estarylla 0.25 mg-35 mcg tablet Take 1 tablet by mouth once a day 11/30 completed Not Available Not Available Not Available Vitals Date Recorded Body weight Body temperature Oxygen saturation Oxygen saturation in Arterial blood by Pulse oximetry Heart rate Body mass index (BMI) Body height Provider Name and Address Organization Details Last Updated DateTime 4 79796.7 1 g 98.1 [degF] 98 % 98 % 111 /min 21 kg/m2 167.64 cm Darya uGevara MA [facility] 4 15:04:04 Date Recorded Body height Body mass index (BMI) Body weight Body temperature Oxygen saturation Oxygen saturation in Arterial blood by Pulse oximetry Heart rate Respiratory rate Systolic blood pressure Diastolic blood pressure Provider Name and Address Organization Details Last Updated DateTime 4 167.64 cm 20.2 kg/m2 62822.0 5 g 99.2 [degF] 98 % 98 % 96 /min 18 /min 124 mm[Hg] 83 mm[Hg] Glenna Calhoun MA [facility] 4 10:12:28 Social History Question Answer Notes LastModified by Organizat ion Details LastModified Time Tobacco Smoking Status Never Smoker Darya Guevara MA [facility], [facility] 06/14/2023 15:10:51 Would You Say That, In General, Your Health Is Excellent [email or web address] Information not available 06/14/2023 Women Aged 18-50 - Would You Like To Become In The Next Year? (Female Patients Only) No [email or web address] Information not available 06/14/2023 How Often Does Anyone, Including Family, Physically Hurt You? Never Information not available 06/14/2023 How Often Does Anyone, Including Family, Insult Or Talk Down To You? Never Information no t available 06/14/2023 How Often Does Anyone, Including Family, Threaten You With Harm? Never [email or web address] Information not available 06/14/2023 How Often Does Anyone, Including Family, Scream Or Curse At You? Never [email or web address] Information not available 06/14/2023 Within The Past 12 Months, You Worried That Your Food Would Run Out Before You Got Money To Buy More. Never True [email or web address] Information n ot available 06/14/2023 Within The Past 12 Months, The Food You Bought Just Didn't Last And You Didn't Have Money To Get More. Never True [email or web address] Information n ot available 06/14/2023 How Hard Is It For You To Pay For The Very Basics Like Food, Housing, Medical Care, And Heating? Would You Say It Is: Not Hard At All [email or web address] Information not available 06/14/2023 In The Past 12 Months, Has Lack Of Reliable Transportation Kept You From Medical Appointments, Meetings, Work Or From Getting Things Needed For Daily Living? No [email or web address] Information not available 06/14/2023 What Is Your Housing Situation Today? I Have Housing. [email or web address] Information not available 06/14/2023 How Often In The Past Year Have You Used Marijuana (including Smoking, Vaping, Dabbing, Or Edibles)? Never Information not available 06/14/2023 How Often In The Past Year Have You Used Prescription Medications That Were Not Prescribed To You? Never [email or web address] Information n ot available 06/14/2023 How Often In The Past Year Have You Taken Your Own Prescription Medication More Than The Way It Was Prescribed Or For Different Reasons Than Its Intended Purpose? Never [email or web address] Information no t available 06/14/2023 How Often In The Past Year Have You Used Other Drugs (for Example, Heroin, Cocaine, Meth, Salvia, Inhalants)? Never [email or web address] Information not available 06/14/2023 Have You Ever Used IV Drugs? No Information not available 06/14/2023 Date Of Most Recent SBINS 06/14/2023 [email or web address] Information not available 06/14/2023 What Was The Date Of Your Most Recent Tobacco Screening? 12/01/2023 [email or web address] Information not available 12/01/2023 Has Tobacco Cessation Counseling Been Provided? Yes [email or web address] Information not available 12/01/2023 On What Date Was Tobacco Cessation Counseling Provided? 12/01/2023 [email or web address] Information not available 12/01/2023 Do You Or Have You Ever Used Any Other Forms Of Tobacco Or Nicotine? No [email or web address] Information not available 06/14/2023 Sex: Female Functional Status None recorded. Mental Status None recorded. Family History Nothing Reported Notes:*Problem: Mother: Evy laird, estranged from her Mom Father: Alive, alcoholic Sisters: 1- healthy Brothers: 1- healthy Children: None Family History of: Hypertension: No Hyperlipidemia: No Coronary heart disease: PG parents(unknown exact one) Diabetes mellitus: No Breast cancer: No Alcoholism: father Mental illness: No Medical History No medical history recorded. Gynecological HistoryNo gynecological history recorded. Obstetrics History GPAL:G 0 P 0 0 0 0 Immunizations Vaccine Type Date Status Provider Name and Address Organization Details Recorded Time Tdap 07/30/2014 completed Not Available [facility] 03:52:38 COVID-19, mRNA, LNP-S, PF, 100 mcg/0.5mL dose or 50 mcg/0.25mL dose 03/26/2020 completed Not Available [facility] 01/21/20 03:52:38 COVID-19, mRNA, LNP-S, PF, 100 mcg/0.5mL dose or 50 mcg/0.25mL dose 04/23/2020 completed Not Available [facility] 01/21/20 03:52:38 influenza, unspecified formulation 01/10/2018 completed Not Available [facility] 01/20/2023 03:52:38 influenza, unspecified formulation 02/02/2015 completed Not Available [facility] 01/20/2023 03:52:38 influenza, unspecified formulation 02/09/2017 completed Not Available [facility] 01/20/2023 03:52:38 influenza, unspecified formulation 01/05/2023 completed Not Available [facility] 03/24/2023 05:31:31 Past Encounters Encounter ID Performer Location Encounter Start Date Encounter Closed Date Diagnosis/Indication Diagnosis SNOMED-CT Code Diagnosis ICD10 Code [id number] RON MUELLER [facility] [address] [place] [address] 06/14/2023 14:35:40 06/14/2023 15:53:59 Adult health examination 594566962 Z00.00 Contracept ion care management 002803998 Z30.9 Dissection of vertebral artery 129888410 I77.74 Tight chest 35534960 R07 [id number],[facility] [address] [place] [address] 12/01/2023 09:31:23 12/01/2023 11:02:38 Influenza-like illness 87682503 B34.9 Health Concerns Section Related Observation LastModified by Organization Detai ls LastModified Time None Recorded Concern Status LastModified by Organization Details LastModified Time None Recorded Advance Directives Directive None Recorded Payers Encounter Date Sequence Insurance Name Policy Number Policy Carrasco Covered Member ID Carrasco Member ID Guarantor Name 06/14/2023 1 [place] [employer] [place] Tara Guerrier [id number] Tara Hawleyefren Notes Date Note Type Note Provider Name and Address Organization Details Recorded Time 06/14/2023 text/html HPI Notes: Sasha presents to [facility] today for routine annual preventive exam plus medication refill. Limited medical history to include prior dissection of vertebral artery 2020. No tobacco use history. Infrequent alcohol use. Household includes spouse and two children ages 2 and 8. Employment with [facility]. RON MUELLER [address], [place], [address], [place] - [facility]. 06/14/2023 15:55:45 OBGyn Episode No OBEpisode recorded.
== END 2023-12-01 12:01 ==
LOC: DI 11:44
PROVIDERS: Visit Provider Physician Assistant Medical
DX: J18.9 Pneumonia, unspecified organism (principal)
CPT/HCPCS: 71046

== ENCOUNTER 2023-12-13 18:29 | Outpatient (CLI) | payer BC, SELFPAY ==
--- NOTE | 2023-12-13 | DI.RAD_ITS ---
Exam(s) XR CHEST 2V PA LATERAL EXAM: XR CHEST 2V PA LATERAL CLINICAL HISTORY: Persistent cough TECHNIQUE: 2D digital imaging was performed. Two views. COMPARISON: CR XR CHEST 2V PA LATERAL from 12/01/2023 FINDINGS: HEART: Normal size. Aorta: Not dilated. PULMONARY VASCULATURE: Normal. MEDIASTINUM: Unremarkable. LUNGS: Improvement previously noted left lower lobe infiltrate. Faint densities remain present. No new abnormalities are seen. PLEURAL SPACE: No pleural effusion or pneumothorax. BONE:Unremarkable for age. SOFT TISSUES: Unremarkable. IMPRESSION: Improvement in left lower lobe infiltrate. DATA REPOSITORY: RADIATION DOSE DELIVERED:
--- NOTE | 2023-12-13 19:25 | DI.VRAD_ITS ---
PROCEDURE INFORMATION: Exam: XR Chest Exam date and time: 12/13/2023 7:05 PM Age: 33 years old Clinical indication: Other: Cough, TECHNIQUE: Imaging protocol: Radiologic exam of the chest. Views: 2 views. COMPARISON: CR XR CHEST 2V PA LATERAL 12/01/2023 11:18 AM FINDINGS: Lungs: There is no pulmonary vascular congestion. The prior focal posteromedial basilar left lower lobe airspace opacity has nearly completely resolved. Lungs are otherwise clear. Pleural spaces: There are no pleural effusions present. There is no evidence of pneumothorax. Heart/Mediastinum: The cardiomediastinal silhouette is within normal limits. Bones/joints: Unremarkable. IMPRESSION: Near-complete resolution of the prior basilar left lower lobe airspace opacity suggesting nearly resolved pneumonia. Recommend follow-up PA and lateral chest x-ray in 8 weeks to document complete resolution. Dictated and Authenticated by: Kit Reynolds MD. Ordering:AKASH Merritt MD
== END 2023-12-13 18:49 ==
PROVIDERS: PCP Nurse Practitioner Family; Visit Provider Physician Assistant Medical
DX: R05.3 Chronic cough (principal)
CPT/HCPCS: 71046

== ENCOUNTER 2024-02-21 13:08 | Outpatient (REF) | payer BC, SELFPAY ==
--- NOTE | 2024-02-21 11:50 | SKI_PTH ---
PATIENT: Tara Guerrier LOC: [facility] U#:[id number] AGE/SX: 33/F ROOM: RE02/21/[address]: ROBIN JONES NP : 1990 BED: DIS: 02/21/2024 SPEC #: [id number] RECD: 02/21/24 17:02 STATUS: MATTEO LEWIS #: [id number] KYLAH: 02/21/24 11:[address]: ROBIN JONES DEPT: Surgical Specimen RECD BY: Carolyne Shelton Tissues: 1 - SKIN BIOPSY(SHAVE/PUNCH) Procedures: SKIN LEVEL 4 Comments: [id number]
== END 2024-02-21 13:09 | disposition home or self-care (01) ==
LOC: NCHCN 13:08
PROVIDERS: PCP Nurse Practitioner Family; Visit Provider Nurse Practitioner Family
DX: L82.1 Other seborrheic keratosis (principal)
CPT/HCPCS: 88305

== ENCOUNTER 2024-12-17 09:21 | Outpatient (CLI) | payer OTHER, SELFPAY ==
[2024-12-17 14:19] LABS: TSH (W/Ref FT4) 2.66 uIU/mL (0.36-3.74)
== END 2024-12-17 09:22 | disposition home or self-care (01) ==
LOC: LBO 09:23
PROVIDERS: PCP Nurse Practitioner Family; Visit Provider Obstetrics & Gynecology
DX: N93.8 Other specified abnormal uterine and vaginal bleeding (principal)
CPT/HCPCS: 36415; 84443